=== PATIENT | male | born 1950 | race Caucasian/White ===

== ENCOUNTER 2017-02-16 20:49 | Inpatient (IN) ==
--- NOTE | 2017-02-16 21:18 | Emergency Department Note ---
Disposition Clinical Impression: Elevated lipase, Hyperkalemia Abdominal pain Qualifiers: Abdominal location: unspecified location Qualified Code(s): R10.9 - Unspecified abdominal pain Leukocytosis Qualifiers: Leukocytosis type: bandemia Qualified Code(s): D72.825 - Bandemia Disposition: Admitted As Inpatient Condition: Fair Time of Disposition: 23:24 Recheck wound or abnormal lab - General Chief Complaint: ED Recheck/Abnormal Lab/Rx Stated Complaint: "abnormal labs" Time Seen by Provider: 02/16/17 21:18 Source: EMS Mode of arrival: EMS Limitations: language barrier, altered mental status, physical limitation, age Nursing Notes Reviewed: Yes Vital Signs Reviewed: Yes - History of Present Illness HPI Narrative: Patient is a 66-year-old male with past medical history BPH, CKD, obsessive- compulsive disorder,. Schizophrenia, cholelithiasis. He presented today as a transfer from the [facility] due to abdominal pain, leukocytosis, hyperkalemia. On arrival, patient is a very poor historian, will no answer any questions for me. When asked if he has abdominal pain he grunts yes but otherwise will not answer anything else. Labs from the [facility] show a leukocytosis of 12. Segmented neutrophils 81.2 high. Potassium 5.8 with EKG with peaked T waves. Patient was given calcium, insulin and glucose, albuterol at the [facility] for this. Patient had x-ray of the chest and abdomen that showed nonobstructive bowel gas pattern. Creatinine 2.4, no previous values to compare this to. Patient also had a lipase of 365. - Related Data Home Medications Medication Instructions Recorded Confirmed ARIPiprazole [Abilify] 10 mg PO DAILY 01/14/16 02/16/17 BuPROPion SR (12 HR) [Wellbutrin 100 mg PO BID 01/14/16 02/16/17 SR] Haloperidol [Haldol] 5 mg PO TID 01/14/16 02/16/17 Lisinopril [Zestril] 5 mg PO DAILY 01/14/16 02/16/17 Pravastatin Sodium [Pravachol] 20 mg PO HS 01/14/16 02/16/17 Haloperidol Decanoate [Haldol] 25 mg IM Q2W 02/16/17 02/16/17 [place]-3 Fatty Acids [Fish Oil 3,000 mg PO DAILY 02/16/17 02/16/17 Concentrate] Allergies Allergy/AdvReac Type Severity Reaction Status Date / Time quetiapine AdvReac See Verified 01/14/16 11:27 Comments Limitations: ROS unobtainable due to patients medical condition Past Medical History - Past Medical History Attestation: Yes The following information was validated with the patient. Source: old records reviewed Medical history: Reports: hyperlipidemia, hypertension, migraine Psychiatric history: Reports: anxiety, schizophrenia - Social History Smoking Status: Unknown if ever smoked Smokeless Tobacco Status: No Alcohol use: Reports: unknown Drug use: Reports: unknown Physical Exam - General Limitations: language barrier, altered mental status, physical limitation, age General appearance: alert - Head Head exam: atraumatic, normocephalic, normal inspection - Eye Eye exam: Present: normal appearance, PERRL, EOMI - ENT ENT exam: normal exam, mucous membranes moist - Neck Neck exam: Present: normal inspection, full ROM, trachea midline - Chest Chest inspection: Present: normal inspection, symmetric chest wall rise - Respiratory Respiratory exam: Present: normal lung sounds bilaterally - Cardiovascular Cardiovascular exam: Present: regular rate, normal rhythm, normal heart sounds - Abdominal Exam Abdominal exam: Present: soft, tenderness (Questionable tenderness in the epigastric and right upper quadrant region. Patient is very stoic on exam with flat facies which impairs physical exam.). Absent: distention, guarding, rebound, rigidity - Extremities Exam Extremities exam: Present: normal inspection. Absent: pedal edema - Neurological Exam Neurological exam: Present: alert, other (Would not answer any questions or perform any requested commands.) - Psychiatric Psychiatric exam: Present: normal mood, flat affect - Skin Skin exam: Present: warm, dry, intact, normal color Course Course Narrative: Patient mildly tachycardic on exam. Physical exam shows Questionable tenderness in the epigastric and right upper quadrant region. Patient is very stoic on exam with flat facies which impairs physical exam. CT of the abdomen and pelvis was obtained that showed no acute findings but did show cholelithiasis. Due to leukocytosis, left shift, possible right upper quadrant pain, patient was started on Unasyn. Would recommend that the patient receives an MRCP or further study of gallbladder/biliary system once admitted. We will admit the patient for abdominal pain, leukocytosis, elevated lipase, hyperkalemia. Repeat EKG here shows no peaked T waves. Patient also given 1 L normal saline and dextrose for mildly low glucose. Abdomen/Pelvis CT 02/16/17 20:57 IMPRESSION: 1. No acute findings identified within the abdomen and pelvis. 2. Cholelithiasis. D/ / 02/16/2017 22:03:15 Kev Dye MD / [email or web address] Interpreting Provider: Kev Dye MD Vital Signs Temperature 98.2 F 02/16/17 20:52 Pulse Rate 111 02/16/17 20:52 Respiratory Rate 18 02/16/17 20:52 Blood Pressure 111/62 02/16/17 20:52 O2 Sat by Pulse Oximetry 97 02/16/17 20:52 Temperature 98.6 F 02/17/17 03:45 Pulse Rate 100 02/17/17 03:45 Respiratory Rate 17 02/17/17 03:45 Blood Pressure 137/74 02/17/17 03:45 O2 Sat by Pulse Oximetry 95 02/17/17 03:45 Oxygen Delivery Oxygen Delivery Nasal Cannula Recheck wound or abnormal lab - MDM Narrative Medical decision making narrative: Patient mildly tachycardic on exam. Physical exam shows Questionable tenderness in the epigastric and right upper quadrant region. Patient is very stoic on exam with flat facies which impairs physical exam. CT of the abdomen and pelvis was obtained that showed no acute findings but did show cholelithiasis. Due to leukocytosis, left shift, possible right upper quadrant pain, patient was started on Unasyn. Would recommend that the patient receives an MRCP or further study of gallbladder/biliary system once admitted. We will admit the patient for abdominal pain, leukocytosis, elevated lipase, hyperkalemia. Repeat EKG here shows no peaked T waves. Patient also given 1 L normal saline and dextrose for mildly low glucose. - Medical Records Medical records reviewed: Yes I reviewed the patient's medical records. - Lab Data Lab results reviewed: Yes I reviewed the patient's lab results. Result diagrams: 02/17/17 05:20 02/17/17 05:20 Lab Results 02/16/17 Range/Units 21:37 Sodium 133 L (136-145) mEq/L Potassium 5.4 H (3.5-4.5) mEq/L Chloride 101 (98-109) mEq/L Carbon Dioxide 23 (19-29) mEq/L BUN 46 H (8-26) mg/dL Creatinine 1.99 H (0.72-1.25) mg/dL Est GFR ( Amer) 41 L (> 60) Est GFR (Non-Af Amer) 34 L (> 60) BUN/Creatinine Ratio 23 (6-26) Glucose 67 L (70-99) mg/dL Calculated Osmolality 286 (280-300) Calcium 9.6 (8.6-10.8) mg/dL - Radiology Data Radiology results reviewed: Yes I reviewed the patient's radiology results. Abdomen/Pelvis CT 02/16/17 20:57 IMPRESSION: 1. No acute findings identified within the abdomen and pelvis. 2. Cholelithiasis. D/ / 02/16/2017 22:03:15 Kev Dye MD / [email or web address] Interpreting Provider: Kev Dye MD - EKG Data EKG attestation: Yes I reviewed and interpreted this EKG. EKG results narrative: 02/16/2017 at 21:51. Sinus tachycardia Rate 103. GA 85. QRS 88. QTC 377. No acute ST elevation or depression. S.B.A.R. - S.B.A.RLawrence Situation: Demographics, MOA Background: Presenting Complaint, Relevant PMH, Meds, & Allergies Assessment: Vital Signs, Course and respsone to treatment, Exam Concerns, Patient/Family Expectation, Pertinant Lab Results, Outstanding Labs Recommendation: Barrier(s) to disposition, Recommendation based on pending studies, treatments, or consults S.B.A.R. Report Given to: Dr. Santo RosenthalBLawrenceAPepper Repor Time: 23:25 Attestation Statement - Attestation Attestation: I examined this patient and my medical decision-making was reviewed with the VAULT PERSON/PA/Advanced Practice Nurse/Resident Physician. I agree with the documented findings, disposition and treatment plan as described except to the extent set forth below. Patient to the emergency department with a chief complaint of abdominal pain. Patient was transferred to [facility] where he was found to be hyperkalemic and acute renal failure. 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 On exam he is laying in bed in no distress. Has some minimal tenderness to palpation of the upper abdomen. He is not guarding. Plan. Patient elevated lipase. Potassium is 5.4. Do not appreciate any peaked T waves on his EKG. CT scan shows some gallstones. Will admit patient for GI and possible MRCP. Antibiotic ordered.
[2017-02-16 22:06] LABS: Calcium 9.6 mg/dL (8.6-10.8); Potassium 5.4 mEq/L (3.5-4.5)
[2017-02-16] MEDS ORDERED: *HR* Dextrose 50 % in Water (Syg) 50 ML SYRINGE IVP ONE (22:10)
[2017-02-16] MEDS ORDERED: Ampicillin/Sulbactam 3,000 MG in 0.9 % Sodium Chloride Mini Bag 100 ML IVPB ONE (22:11)
[2017-02-16] MEDS ORDERED: 0.9 % Sodium Chloride 1,000 ML IVC ONE (22:13)
[2017-02-17] MEDS ORDERED: Ondansetron 4 MG/2 ML VIAL IVP PRN (02:50)
[2017-02-17] MEDS ORDERED: Naloxone 0.4 MG/ML INJ IVP PRN (02:50)
[2017-02-17] MEDS: 0.9 % Sodium Chloride 1,000 ML IVC SCH ×2 (03:22→15:53)
[2017-02-17] MEDS ORDERED: *HR* Morphine 2 MG/ML SYRINGE IVP PRN (03:36)
--- NOTE | 2017-02-17 04:04 | Internal Med History&Physical ---
Date of Encounter: 02/17/17 Time of Encounter: 03:00 Assessment and Plan (1) Acute renal failure Current visit: Yes Status: Acute Likely related to poor oral intake, prerenal azotemia and dehydration. Serum creatinine improved from 2.4-1.9 at this time. Continue IV hydration, monitor urine output and serum creatinine closely. Avoid new nephrotoxic agents. Hold WENDY inhibitor for now. Qualifiers: Acute renal failure type: unspecified Qualified Code(s): N17.9 - Acute kidney failure, unspecified (2) Elevated lipase Current visit: Yes Status: Acute Reported abdominal pain along with mildly elevated serum lipase. CT abdomen/ pelvis shows no acute abnormality; patient did have gallstones on previous imaging. Abdominal x-ray done at the [facility] emergency room shows nonspecific bowel gas pattern. Continue IV hydration, pain control with when necessary IV morphine. Low-fat Diet as tolerated, repeat serum lipase. (3) Hyperkalemia Current visit: Yes Status: Acute Probably related to acute renal failure. Patient received calcium gluconate/ albuterol/insulin/D50 at the [facility] emergency room and serum potassium noted to improve from 5.8-5.4 currently. We will give 1 dose of oral Kayexalate, monitor serum potassium closely. Telemetry monitoring. EKG done at the [facility] emergency room shows normal sinus rhythm with peaked T waves in precordial leads, EKG at this time shows sinus rhythm with improved T wave morphology. (4) Schizophrenia Current visit: Yes Status: Chronic History of paranoid schizophrenia, continue home medications. Could be in catatonic face at this time, continue to monitor and consider psychiatric evaluation if no improvement. Qualifiers: Schizophrenia type: paranoid schizophrenia Qualified Code(s): F20.0 - Paranoid schizophrenia (5) Essential hypertension Current visit: Yes Status: Chronic (6) Hyperlipidemia Current visit: Yes Status: Chronic Qualifiers: Hyperlipidemia type: unspecified Qualified Code(s): E78.5 - Hyperlipidemia , unspecified (7) BPH (benign prostatic hyperplasia) Current visit: Yes Status: Chronic Qualifiers: Prostatic enlargement morphology: unspecified morphology Lower urinary tract symptom presence: presence of symptoms unspecified Qualified Code(s): N40.0 - Benign prostatic hyperplasia without lower urinary tract symptoms Internal Medicine - H&P: HPI Chief complaint: Poor oral intake Admitted From: Emergency Dept Plans for Post Hospital Care: Home History of present illness: Mr. Centeno is a 66 year old male with history of paranoid schizophrenia was brought in by family with complaints of poor oral intake, not communicating for the last 2-3 days. He was initially taken to the emergency room at [facility] where he was noted to have abnormal labs including elevated serum creatinine, serum potassium, serum lipase and mild leukocytosis and he was transferred to our emergency room for further workup. Patient is unable to provide any history at this time, which is obtained from review of emergency room records. No family at bedside. Patient is noted to be in mild distress, intermittently reports abdominal pain but is unable to characterize or give specific details regarding the pain. Patient has been having poor oral intake for the last 2-3 days, not speaking or communicating with family members per emergency room records. Reported epigastric and lower abdominal pain for . No vomiting or diarrhea. Past Med Surg Social Fam HX - Past Medical History Medical history: GERD, hyperlipidemia, hypertension, migraine Psychiatric history: anxiety, schizophrenia - Past Surgical History Surgical History: other (Cannot be obtained due to patient's mental status) - Social History Smoking Status: Unknown if ever smoked Smokeless Tobacco Status: No Alcohol use: unknown Drug use: unknown Current living situation: Home, With Family - Family History Mother Adopted: No Family Member Ethnicity: Non- Living Status: Still Living Hx Family Cardiac Disorders: Yes (HTN, AAA) Hx Family Respiratory Disorders: Yes (COPD) Hx Family Cancer: No Hx Family GI Disorders: Yes (SBO) Hx Family Endocrine Disorder: Yes (Thyroid) Hx Family Neuromuscular Disorders: No Hx Family Neurologic Disorders: Yes (TIA) Hx Family HEENT Disorders: Yes (Eyes) Hx Family Autoimmune Disorders: No Internal Medicine - H&P: Meds ARIPiprazole [Abilify] 10 mg PO DAILY 01/14/16 [History] BuPROPion SR (12 HR) [Wellbutrin SR] 100 mg PO BID 01/14/16 [History] Haloperidol [Haldol] 5 mg PO TID 01/14/16 [History] Lisinopril [Zestril] 5 mg PO DAILY 01/14/16 [History] Pravastatin Sodium [Pravachol] 20 mg PO HS 01/14/16 [History] Haloperidol Decanoate [Haldol] 25 mg IM Q2W 02/16/17 [History] [place]-3 Fatty Acids [Fish Oil Concentrate] 3,000 mg PO DAILY 02/16/17 [History] Allergies quetiapine Adverse Reaction (Verified 01/14/16 11:27) See Comments tacycardia pt states almost killed him All Systems PM: A 10-system review of systems was performed and is negative for pertinent findings except as documented above in the HPI. - Constitutional Constitutional: malaise - EENT Eyes: no change in vision, no discharge, no pain, no photophobia Ears: no ear discharge, no ear pain, no tinnitus Nose, mouth and throat: no dysphagia, no nasal discharge, no neck pain, no sore throat - Cardiovascular Cardiovascular ROS IM: no chest pain, no diaphoresis, no dyspnea, no lightheadedness, no palpitations, no syncope - Respiratory Respiratory: no cough, no dyspnea, no wheezing, no excessive phlegm production - Gastrointestinal Gastrointestinal: abdominal pain - Musculoskeletal Musculoskeletal ROS IM: no numbness, no tingling - Integumentary Integumentary IM: no rash, no unusual bruising - Neurological Neurological ROS: abnormal speech, behavioral changes - Hematologic/Lymphatic Hematologic/Lymphatic: no easy bruising - Constitutional Vitals: Temp Pulse Resp BP Pulse Ox 97.5 F L 100 16 123/78 94 02/17/17 01:29 02/17/17 01:29 02/17/17 01:29 02/17/17 01:29 02/17/17 01:29 General appearance: Present: A&O X 0. Absent: answers questions appropriately - Respiratory Respiratory exam: Present: CTAB. Absent: accessory muscle use, rales, rhonchi, wheezes - Cardiovascular Cardiovascular exam: Present: RRR, +S1, +S2. Absent: diastolic murmur, gallop, rubs, systolic murmur - GI/Abdominal GI/Abdominal exam: Present: normal bowel sounds, rigid (Diffuse voluntary guarding), soft, no peritoneal signs. Absent: distended, tenderness - Extremities Exam Extremities exam: Present: full ROM, warm, radial pulses palpable and symetrical. Absent: calf tenderness, cyanotic, pedal edema - Neurological Exam Neurological exam: Present: altered (keeps eyes closed, cannot follow commands) , strengths equal and symetr throughout. Absent: pronater drift, facial droop, speech deficit - Skin Skin exam: Present: dry, intact Internal Med - H&P Results - Labs CBC & Chem 7: 02/16/17 21:37
[2017-02-17 06:00] LABS: Basophils % 0.2 %; Eosinophils % 0.4 %; Hematocrit 41.2 % (37.5-50.1); Hemoglobin 13.4 g/dL (12.9-16.9); Immature Granulocytes % 0.4 % (0-4); Lymphocytes % 18.6 %; Mean Corpuscular HGB Conc 32.5 g/dL (31.6-35.5); Mean Corpuscular Hemoglobin 29.1 pg (28.0-33.3); Mean Corpuscular Volume 89.4 fL (83.0-100.0); Mean Platelet Volume 9.1 fL (9.4-12.4); Monocytes # 0.9 K/mcL (0.0-1.3); Monocytes % 8.4 %; Neutrophils # 7.8 K/mcL (1.6-8.9); Platelet Count 220 K/mcL (140-400); Red Blood Count 4.61 M/mcL (4.19-5.50); Red Cell Distribution Width 12.7 % (11.5-14.5)
[2017-02-17 06:20] LABS: Calcium 8.8 mg/dL (8.6-10.8); Magnesium 1.6 mg/dL (1.6-2.6); Phosphorous 3.7 mg/dL (2.3-4.7); Potassium 5.4 mEq/L (3.5-4.5)
[2017-02-17] MEDS ORDERED: FISH OIL PO SCH (09:00)
[2017-02-17] MEDS: BuPROPion SR (12 HR) 100 MG TABLET PO SCH ×2 (09:13→21:30)
[2017-02-17] MEDS: ARIPiprazole 10 MG TABLET PO SCH (09:13)
[2017-02-17] MEDS: *HR* Heparin 5,000 UNIT/ML VIAL SQ SCH ×3 (09:14→21:30)
[2017-02-17 10:40] LABS: Potassium,Urine 58.9 mEq/L
[2017-02-17 10:43] LABS: Creatinine,Urine 177 mg/dL; Microalbum/Creatinine Ratio,Ur 130 (0-30); Microalbumin,Urine 230 mg/L
[2017-02-17 11:09] LABS: Calcium 8.5 mg/dL (8.6-10.8); Potassium 5.3 mEq/L (3.5-4.5)
[2017-02-17 15:24] LABS: BUN/Creatinine Ratio 26 (6-26); Blood Urea Nitrogen 33 mg/dL (8-26); Calcium 8.2 mg/dL (8.6-10.8); Carbon Dioxide 27 mEq/L (19-29); Chloride 103 mEq/L (98-109); Glucose 122 mg/dL (70-99); Osmolality,Calculated 289 (280-300); Potassium 5.2 mEq/L (3.5-4.5); Sodium 135 mEq/L (136-145); eGFR For African Americans > 60 (> 60); eGFR For Non-African Americans 57 (> 60)
--- NOTE | 2017-02-17 17:20 | Internal Med Progress Note ---
Date of Encounter: 02/17/17 Time of Encounter: 11:55 - Assessment and plan (1) Hyperkalemia Current Visit: Yes Status: Acute Assessment and plan: Is slowly trending down, we will repeat Kayexalate and keep monitoring electrolytes tomorrow in a.m. Avoid medications that could potentially increase potassium levels. Lisinopril was stopped. Patient had urinary retention earlier in the morning, a Ames catheter was placed. Continue monitoring input and output. Avoid nephrotoxic agents. Continue with telemetry monitoring. (2) Urinary retention Current Visit: Yes Status: Acute Assessment and plan: Continue with Ames, which was ordered this a.m. Additionally, Flomax was ordered. Apparently the patient was on Flomax as outpatient but he stopped according to his . No evidence of hydronephrosis in CT of the abdomen. No evidence of kidney stones either, patient's states that the patient was passing kidney stones in the urine. Will benefit from an evaluation with urology as outpatient. (3) Acute renal failure Current Visit: Yes Status: Acute Assessment and plan: Kidney function tests improving with IV fluids. Avoid nephrotoxic agents. Continue monitoring kidney function test and electrolytes. Qualifiers: Acute renal failure type: unspecified Qualified Code(s): N17.9 - Acute kidney failure, unspecified (4) Schizophrenia Current Visit: Yes Status: Chronic Assessment and plan: Resume home medications. Qualifiers: Schizophrenia type: paranoid schizophrenia Qualified Code(s): F20.0 - Paranoid schizophrenia (5) Essential hypertension Current Visit: Yes Status: Chronic (6) BPH (benign prostatic hyperplasia) Current Visit: Yes Status: Chronic Qualifiers: Prostatic enlargement morphology: unspecified morphology Lower urinary tract symptom presence: presence of symptoms unspecified Qualified Code(s): N40.0 - Benign prostatic hyperplasia without lower urinary tract symptoms - Subjective Interval history: Patient seen and examined during rounds. Initially was drowsy, the there was reexamining, examined members were at bedside the patient looks more alert, following commands partially. Patient has a Ames catheter placed, he was found to have urinary retention of 700 mL - Constitutional Vitals: Temp Pulse Resp BP Pulse Ox 97.9 F 83 18 118/75 97 02/17/17 15:25 02/17/17 15:25 02/17/17 10:58 02/17/17 15:25 02/17/17 15:25 General appearance: Present: A&O X 2. Absent: answers questions appropriately - Head Head exam: Present: atraumatic, normocephalic - Eye Eye exam: Present: PERRL, conjuntiva pink, sclera anicteric Pupils: Present: PERRL - Neck Neck exam general surgery: Present: supple, trachea midline. Absent: lymphadenopathy - Respiratory Respiratory exam: Present: CTAB. Absent: accessory muscle use, rales, rhonchi, wheezes - Cardiovascular Cardiovascular exam: Present: RRR, +S1, +S2. Absent: diastolic murmur, gallop, rubs, systolic murmur - GI/Abdominal GI/Abdominal exam: Present: normal bowel sounds, soft, no peritoneal signs. Absent: distended, tenderness - Extremities Exam Extremities exam: Present: warm, radial pulses palpable and symetrical. Absent : calf tenderness, cyanotic, pedal edema - Neurological Exam Neurological exam: Present: CN II-XII intact, oriented X3, no focal deficits. Absent: pronater drift, facial droop, speech deficit - Skin Skin exam: Present: dry, intact Internal Medicine: Result - Labs CBC & Chem 7: 02/17/17 05:20 02/17/17 15:03 Labs: Short CBC 02/17/17 Range/Units 05:20 WBC 10.8 (4.3-11.1) K/mcL Hgb 13.4 (12.9-16.9) g/dL Hct 41.2 (37.5-50.1) % Plt Count 220 (140-400) K/mcL Neutrophils # 7.8 (1.6-8.9) K/mcL BMP 02/17/17 02/17/17 02/17/17 05:20 09:05 15:03 Sodium 134 L 133 L 135 L Potassium 5.4 H 5.3 H 5.2 H Chloride 102 102 103 Carbon Dioxide 24 21 27 BUN 39 H 37 H 33 H Creatinine 1.58 H 1.47 H 1.26 H Glucose 83 131 H 122 H Calcium 8.8 8.5 L 8.2 L Consult Discharge Plan - Plan [facility]errals: [facility]Primary Care Provider[facility] - 02/25/17 12:45 pm
[2017-02-18] MEDS: 0.9 % Sodium Chloride 1,000 ML IVC SCH (03:36)
[2017-02-18] MEDS: *HR* Heparin 5,000 UNIT/ML VIAL SQ SCH ×3 (05:02→21:57)
[2017-02-18] MEDS ORDERED: *HR* Morphine 2 MG/ML SYRINGE IVP PRN (05:36)
[2017-02-18 05:54] LABS: BUN/Creatinine Ratio 25 (6-26); Blood Urea Nitrogen 26 mg/dL (8-26); Calcium 8.1 mg/dL (8.6-10.8); Carbon Dioxide 27 mEq/L (19-29); Chloride 104 mEq/L (98-109); Creatine Kinase 205 Units/L (30-200); Glucose 100 mg/dL (70-99); Osmolality,Calculated 293 (280-300); Potassium 4.4 mEq/L (3.5-4.5); Sodium 139 mEq/L (136-145); eGFR For African Americans > 60 (> 60); eGFR For Non-African Americans > 60 (> 60)
[2017-02-18 06:52] LABS: Basophils % 0.1 %; Eosinophils # 0.1 K/mcL (0.0-0.6); Eosinophils % 1.2 %; Hematocrit 37.4 % (37.5-50.1); Immature Granulocytes % 0.3 % (0-4); Lymphocytes # 1.6 K/mcL (0.6-4.6); Lymphocytes % 20.7 %; Mean Corpuscular HGB Conc 32.1 g/dL (31.6-35.5); Mean Corpuscular Hemoglobin 29.2 pg (28.0-33.3); Mean Platelet Volume 9.4 fL (9.4-12.4); Monocytes # 0.6 K/mcL (0.0-1.3); Monocytes % 7.7 %; Neutrophils # 5.4 K/mcL (1.6-8.9); Platelet Count 196 K/mcL (140-400); Red Blood Count 4.11 M/mcL (4.19-5.50); Red Cell Distribution Width 12.7 % (11.5-14.5)
[2017-02-18 06:55] LABS: Hepatitis A Antibody IgM Nonreactive (Nonreactive); Hepatitis B Core IgM Nonreactive (Nonreactive); Hepatitis B Surface Antigen Nonreactive (Nonreactive); Hepatitis C Virus Antibody Nonreactive (Nonreactive)
[2017-02-18 07:17] LABS: C-Reactive Protein 8 mg/L (Less than 5)
[2017-02-18] MEDS: ARIPiprazole 10 MG TABLET PO SCH (08:10)
[2017-02-18] MEDS: BuPROPion SR (12 HR) 100 MG TABLET PO SCH ×2 (08:10→21:54)
--- NOTE | 2017-02-18 17:18 | Internal Med Progress Note ---
Date of Encounter: 02/18/17 Time of Encounter: 13:00 - Assessment and plan (1) Hyperkalemia Current Visit: Yes Status: Acute Assessment and plan: Iresolved, will continue monitoring. Avoid medications that could potentially increase potassium levels. Lisinopril was stopped. Patient had urinary retention yesterday morning, a Ames catheter was placed. Continue monitoring input and output. Avoid nephrotoxic agents. Continue with telemetry monitoring. (2) Urinary retention Current Visit: Yes Status: Acute Assessment and plan: Continue with Ames Additionally, Flomax was ordered. Apparently the patient was on Flomax as outpatient but he stopped according to his . No evidence of hydronephrosis in CT of the abdomen. No evidence of kidney stones either, patient's states that the patient was passing kidney stones in the urine. Will benefit from an evaluation with urology as outpatient. (3) Acute renal failure Current Visit: Yes Status: Acute Assessment and plan: Kidney function tests improving nicely with IV fluids. Avoid nephrotoxic agents. Continue monitoring kidney function test and electrolytes. Qualifiers: Acute renal failure type: unspecified Qualified Code(s): N17.9 - Acute kidney failure, unspecified (4) Schizophrenia Current Visit: Yes Status: Chronic Assessment and plan: continue with home medications. Qualifiers: Schizophrenia type: paranoid schizophrenia Qualified Code(s): F20.0 - Paranoid schizophrenia (5) Essential hypertension Current Visit: Yes Status: Chronic (6) BPH (benign prostatic hyperplasia) Current Visit: Yes Status: Chronic Qualifiers: Prostatic enlargement morphology: unspecified morphology Lower urinary tract symptom presence: presence of symptoms unspecified Qualified Code(s): N40.0 - Benign prostatic hyperplasia without lower urinary tract symptoms - Subjective Interval history: Patient seen and examined during rounds. received morphine overight, was drowsy. Patient has a Ames catheter placed. wie at bedside. not having pain during this encounter. - Constitutional Vitals: Temp Pulse Resp BP Pulse Ox 98.9 F 96 18 173/81 93 02/18/17 15:28 02/18/17 15:28 02/18/17 15:28 02/18/17 15:28 02/18/17 15:28 General appearance: Present: A&O X 2. Absent: answers questions appropriately - Head Head exam: Present: atraumatic, normocephalic - Eye Eye exam: Present: PERRL, conjuntiva pink, sclera anicteric Pupils: Present: PERRL - Neck Neck exam general surgery: Present: supple, trachea midline. Absent: lymphadenopathy - Respiratory Respiratory exam: Present: CTAB. Absent: accessory muscle use, rales, rhonchi, wheezes - Cardiovascular Cardiovascular exam: Present: RRR, +S1, +S2. Absent: diastolic murmur, gallop, rubs, systolic murmur - GI/Abdominal GI/Abdominal exam: Present: normal bowel sounds, soft, no peritoneal signs. Absent: distended, tenderness - Extremities Exam Extremities exam: Present: warm, radial pulses palpable and symetrical. Absent : calf tenderness, cyanotic, pedal edema - Neurological Exam Neurological exam: Present: CN II-XII intact, oriented X3, no focal deficits. Absent: pronater drift, facial droop, speech deficit - Skin Skin exam: Present: dry, intact Internal Medicine: Result - Labs CBC & Chem 7: 02/18/17 04:48 02/18/17 04:48 Labs: Short CBC 02/18/17 Range/Units 04:48 WBC 7.7 (4.3-11.1) K/mcL Hgb 12.0 L (12.9-16.9) g/dL Hct 37.4 L (37.5-50.1) % Plt Count 196 (140-400) K/mcL Neutrophils # 5.4 (1.6-8.9) K/mcL BMP 02/18/17 04:48 Sodium 139 Potassium 4.4 Chloride 104 Carbon Dioxide 27 BUN 26 Creatinine 1.03 Glucose 100 H Calcium 8.1 L Consult Discharge Plan - Plan [facility]errals: [facility] [Primary Care Provider] - 02/25/17 12:45 pm
[2017-02-19 03:22] LABS: Basophils % 0.4 %; Eosinophils # 0.1 K/mcL (0.0-0.6); Eosinophils % 0.8 %; Hematocrit 35.7 % (37.5-50.1); Hemoglobin 11.9 g/dL (12.9-16.9); Immature Granulocytes % 0.1 % (0-4); Lymphocytes # 1.2 K/mcL (0.6-4.6); Lymphocytes % 16.5 %; Mean Corpuscular HGB Conc 33.3 g/dL (31.6-35.5); Mean Corpuscular Hemoglobin 30.1 pg (28.0-33.3); Mean Corpuscular Volume 90.2 fL (83.0-100.0); Mean Platelet Volume 9.3 fL (9.4-12.4); Monocytes # 0.5 K/mcL (0.0-1.3); Monocytes % 7.1 %; Neutrophils # 5.5 K/mcL (1.6-8.9); Platelet Count 168 K/mcL (140-400); Red Blood Count 3.96 M/mcL (4.19-5.50); Red Cell Distribution Width 12.3 % (11.5-14.5); Segmented Neutrophils % 75.1 %
[2017-02-19 03:39] LABS: BUN/Creatinine Ratio 22 (6-26); Blood Urea Nitrogen 20 mg/dL (8-26); Calcium 8.2 mg/dL (8.6-10.8); Carbon Dioxide 25 mEq/L (19-29); Chloride 104 mEq/L (98-109); Glucose 95 mg/dL (70-99); Osmolality,Calculated 286 (280-300); Potassium 4.3 mEq/L (3.5-4.5); Sodium 137 mEq/L (136-145); eGFR For African Americans > 60 (> 60); eGFR For Non-African Americans > 60 (> 60)
[2017-02-19] MEDS: *HR* Heparin 5,000 UNIT/ML VIAL SQ SCH ×3 (05:22→22:42)
[2017-02-19] MEDS: 0.9 % Sodium Chloride 1,000 ML IVC SCH ×3 (05:30→18:54)
[2017-02-19] MEDS: ARIPiprazole 10 MG TABLET PO SCH (07:56)
[2017-02-19] MEDS: BuPROPion SR (12 HR) 100 MG TABLET PO SCH ×2 (07:56→22:41)
--- NOTE | 2017-02-19 15:58 | Internal Med Progress Note ---
Date of Encounter: 02/19/17 Time of Encounter: 13:50 - Assessment and plan (1) Hyperkalemia Current Visit: Yes Status: Acute Assessment and plan: resolved, will continue monitoring. Avoid medications that could potentially increase potassium levels. Lisinopril was stopped. Patient had urinary retention upon first evaluation in the unit, a Ames catheter was placed. Continue monitoring input and output. Avoid nephrotoxic agents. Continue with telemetry monitoring. (2) Urinary retention Current Visit: Yes Status: Acute Assessment and plan: Continue with Ames Additionally, Flomax was ordered. Apparently the patient was on Flomax as outpatient but he stopped according to his . No evidence of hydronephrosis in CT of the abdomen. No evidence of kidney stones either, patient's states that the patient was passing kidney stones in the urine. Will benefit from an evaluation with urology as outpatient. (3) Acute renal failure Current Visit: Yes Status: Acute Assessment and plan: Kidney function tests improving nicely with IV fluids. Currently back to normal. Avoid nephrotoxic agents. Continue monitoring kidney function test and electrolytes. Qualifiers: Acute renal failure type: unspecified Qualified Code(s): N17.9 - Acute kidney failure, unspecified (4) Schizophrenia Current Visit: Yes Status: Chronic Assessment and plan: continue with home medications. patient with long history of mental health disorders, he was even admitted at the inpatient psych unit at the [place]. D/W patient's in detail, he is medically getting better and bandar try to optimize his oral intake. Will initiate process of transfer to the [place] inpatient psych unit. Qualifiers: Schizophrenia type: paranoid schizophrenia Qualified Code(s): F20.0 - Paranoid schizophrenia (5) Essential hypertension Current Visit: Yes Status: Chronic (6) BPH (benign prostatic hyperplasia) Current Visit: Yes Status: Chronic Qualifiers: Prostatic enlargement morphology: unspecified morphology Lower urinary tract symptom presence: presence of symptoms unspecified Qualified Code(s): N40.0 - Benign prostatic hyperplasia without lower urinary tract symptoms - Subjective Interval history: Patient seen and examined during rounds. Patient has a Ames catheter placed. at bedside. not having pain during this encounter. - Constitutional Vitals: Temp Pulse Resp BP Pulse Ox 98.9 F 78 18 168/73 95 02/19/17 15:35 02/19/17 15:35 02/19/17 15:35 02/19/17 15:35 02/19/17 15:35 General appearance: Present: A&O X 2. Absent: answers questions appropriately - Head Head exam: Present: atraumatic, normocephalic - Eye Eye exam: Present: PERRL, conjuntiva pink, sclera anicteric Pupils: Present: PERRL - Neck Neck exam general surgery: Present: supple, trachea midline. Absent: lymphadenopathy - Respiratory Respiratory exam: Present: CTAB. Absent: accessory muscle use, rales, rhonchi, wheezes - Cardiovascular Cardiovascular exam: Present: RRR, +S1, +S2. Absent: diastolic murmur, gallop, rubs, systolic murmur - GI/Abdominal GI/Abdominal exam: Present: normal bowel sounds, soft, no peritoneal signs. Absent: distended, tenderness - Extremities Exam Extremities exam: Present: warm, radial pulses palpable and symetrical. Absent : calf tenderness, cyanotic, pedal edema - Neurological Exam Neurological exam: Present: CN II-XII intact, oriented X3, no focal deficits. Absent: pronater drift, facial droop, speech deficit - Skin Skin exam: Present: dry, intact Internal Medicine: Result - Labs CBC & Chem 7: 02/19/17 03:12 02/19/17 03:12 Labs: Short CBC 02/19/17 Range/Units 03:12 WBC 7.3 (4.3-11.1) K/mcL Hgb 11.9 L (12.9-16.9) g/dL Hct 35.7 L (37.5-50.1) % Plt Count 168 (140-400) K/mcL Neutrophils # 5.5 (1.6-8.9) K/mcL BMP 02/19/17 03:12 Sodium 137 Potassium 4.3 Chloride 104 Carbon Dioxide 25 BUN 20 Creatinine 0.89 Glucose 95 Calcium 8.2 L Consult Discharge Plan - Plan [facility]: [facility] Care Provider[facility] - 02/25/17 12:45 pm
[2017-02-19] MEDS: Acetaminophen 325 MG TABLET PO PRN (22:41)
[2017-02-20 04:14] LABS: Basophils % 0.5 %; Eosinophils # 0.1 K/mcL (0.0-0.6); Eosinophils % 1.1 %; Hematocrit 35.4 % (37.5-50.1); Hemoglobin 11.6 g/dL (12.9-16.9); Immature Granulocytes % 0.3 % (0-4); Lymphocytes # 1.3 K/mcL (0.6-4.6); Mean Corpuscular HGB Conc 32.8 g/dL (31.6-35.5); Mean Corpuscular Hemoglobin 29.4 pg (28.0-33.3); Mean Corpuscular Volume 89.6 fL (83.0-100.0); Mean Platelet Volume 9.7 fL (9.4-12.4); Monocytes # 0.6 K/mcL (0.0-1.3); Monocytes % 9.2 %; Neutrophils # 4.4 K/mcL (1.6-8.9); Platelet Count 182 K/mcL (140-400); Red Blood Count 3.95 M/mcL (4.19-5.50); Red Cell Distribution Width 12.2 % (11.5-14.5); Segmented Neutrophils % 68.9 %
[2017-02-20 04:28] LABS: BUN/Creatinine Ratio 22 (6-26); Blood Urea Nitrogen 19 mg/dL (8-26); Carbon Dioxide 22 mEq/L (19-29); Chloride 105 mEq/L (98-109); Glucose 82 mg/dL (70-99); Potassium 4.4 mEq/L (3.5-4.5); Sodium 137 mEq/L (136-145); eGFR For African Americans > 60 (> 60); eGFR For Non-African Americans > 60 (> 60)
[2017-02-20 04:29] LABS: Calcium 8.3 mg/dL (8.6-10.8); Osmolality,Calculated 285 (280-300)
[2017-02-20] MEDS: *HR* Heparin 5,000 UNIT/ML VIAL SQ SCH ×3 (05:54→21:25)
[2017-02-20 07:40] LABS: ANA IgG by ELISA NONE DETECTED (None Detected)
[2017-02-20] MEDS: ARIPiprazole 10 MG TABLET PO SCH (07:52)
[2017-02-20] MEDS: BuPROPion SR (12 HR) 100 MG TABLET PO SCH ×2 (07:52→21:24)
[2017-02-20] MEDS: 0.9 % Sodium Chloride 1,000 ML IVC SCH ×2 (08:02→17:15)
--- NOTE | 2017-02-20 16:59 | Internal Med Progress Note ---
Date of Encounter: 02/20/17 Time of Encounter: 11:35 - Assessment and plan (1) Hyperkalemia Current Visit: Yes Status: Acute Assessment and plan: resolved, will continue monitoring. Avoid medications that could potentially increase potassium levels. Lisinopril was stopped. Patient had urinary retention upon first evaluation in the unit, a Ames catheter was placed. Continue monitoring input and output. Avoid nephrotoxic agents. Continue with telemetry monitoring. (2) Urinary retention Current Visit: Yes Status: Acute (3) Acute renal failure Current Visit: Yes Status: Acute Assessment and plan: Kidney function tests improving nicely with IV fluids. Currently back to normal. Avoid nephrotoxic agents. Continue monitoring kidney function test and electrolytes. Qualifiers: Acute renal failure type: unspecified Qualified Code(s): N17.9 - Acute kidney failure, unspecified (4) Schizophrenia Current Visit: Yes Status: Chronic Assessment and plan: continue with home medications. patient with long history of mental health disorders, he was even admitted at the inpatient psych unit at the [place]. D/W patient's in detail, he is medically getting better and bandar try to optimize his oral intake. Will initiate process of transfer to the [place] inpatient psych unit. Qualifiers: Schizophrenia type: paranoid schizophrenia Qualified Code(s): F20.0 - Paranoid schizophrenia (5) Essential hypertension Current Visit: Yes Status: Chronic (6) BPH (benign prostatic hyperplasia) Current Visit: Yes Status: Chronic Qualifiers: Prostatic enlargement morphology: unspecified morphology Lower urinary tract symptom presence: presence of symptoms unspecified Qualified Code(s): N40.0 - Benign prostatic hyperplasia without lower urinary tract symptoms - Subjective Interval history: Patient seen and examined during rounds. Patient has a Ames catheter placed. not following commands. not having pain during this encounter. - Constitutional Vitals: Temp Pulse Resp BP Pulse Ox 98.5 F 90 18 162/94 94 02/20/17 11:46 02/20/17 11:46 02/20/17 11:46 02/20/17 11:46 02/20/17 11:46 General appearance: Present: A&O X 2. Absent: answers questions appropriately - Head Head exam: Present: atraumatic, normocephalic - Eye Eye exam: Present: PERRL, conjuntiva pink, sclera anicteric Pupils: Present: PERRL - Neck Neck exam general surgery: Present: supple, trachea midline. Absent: lymphadenopathy - Respiratory Respiratory exam: Present: CTAB. Absent: accessory muscle use, rales, rhonchi, wheezes - Cardiovascular Cardiovascular exam: Present: RRR, +S1, +S2. Absent: diastolic murmur, gallop, rubs, systolic murmur - GI/Abdominal GI/Abdominal exam: Present: normal bowel sounds, soft, no peritoneal signs. Absent: distended, tenderness - Extremities Exam Extremities exam: Present: warm, radial pulses palpable and symetrical. Absent : calf tenderness, cyanotic, pedal edema - Neurological Exam Neurological exam: Present: no focal deficits. Absent: pronater drift, facial droop, speech deficit - Skin Skin exam: Present: dry, intact Internal Medicine: Result - Labs CBC & Chem 7: 02/20/17 03:31 02/20/17 03:31 Labs: Short CBC 02/20/17 Range/Units 03:31 WBC 6.3 (4.3-11.1) K/mcL Hgb 11.6 L (12.9-16.9) g/dL Hct 35.4 L (37.5-50.1) % Plt Count 182 (140-400) K/mcL Neutrophils # 4.4 (1.6-8.9) K/mcL BMP 02/20/17 03:31 Sodium 137 Potassium 4.4 Chloride 105 Carbon Dioxide 22 BUN 19 Creatinine 0.86 Glucose 82 Calcium 8.3 L Consult Discharge Plan - Plan [facility]: [facility] [Primary Care Provider[facility] - 02/25/17 12:45 pm
[2017-02-20] MEDS ORDERED: *HR* LORazepam 2 MG/ML VIAL IVP ONE (23:46)
[2017-02-21] MEDS: *HR* Labetalol 20 MG/4 ML SYRINGE IVP PRN ×2 (00:28→22:38)
[2017-02-21 05:12] LABS: Basophils % 0.3 %; Eosinophils # 0.2 K/mcL (0.0-0.6); Eosinophils % 2.6 %; Hematocrit 33.7 % (37.5-50.1); Hemoglobin 11.2 g/dL (12.9-16.9); Immature Granulocytes % 0.2 % (0-4); Lymphocytes # 1.5 K/mcL (0.6-4.6); Lymphocytes % 24.8 %; Mean Corpuscular HGB Conc 33.2 g/dL (31.6-35.5); Mean Corpuscular Hemoglobin 29.9 pg (28.0-33.3); Mean Corpuscular Volume 89.9 fL (83.0-100.0); Mean Platelet Volume 9.5 fL (9.4-12.4); Monocytes # 0.6 K/mcL (0.0-1.3); Monocytes % 9.9 %; Neutrophils # 3.6 K/mcL (1.6-8.9); Platelet Count 155 K/mcL (140-400); Red Blood Count 3.75 M/mcL (4.19-5.50); Red Cell Distribution Width 12.4 % (11.5-14.5); Segmented Neutrophils % 62.2 %
[2017-02-21 05:23] LABS: BUN/Creatinine Ratio 21 (6-26); Blood Urea Nitrogen 18 mg/dL (8-26); Calcium 8.3 mg/dL (8.6-10.8); Carbon Dioxide 26 mEq/L (19-29); Chloride 103 mEq/L (98-109); Glucose 81 mg/dL (70-99); Magnesium 1.6 mg/dL (1.6-2.6); Osmolality,Calculated 283 (280-300); Potassium 4.2 mEq/L (3.5-4.5); Sodium 136 mEq/L (136-145); eGFR For African Americans > 60 (> 60); eGFR For Non-African Americans > 60 (> 60)
[2017-02-21] MEDS: *HR* Heparin 5,000 UNIT/ML VIAL SQ SCH ×3 (06:47→22:10)
[2017-02-21] MEDS: BuPROPion SR (12 HR) 100 MG TABLET PO SCH ×2 (08:32→22:10)
[2017-02-21] MEDS: ARIPiprazole 10 MG TABLET PO SCH (08:32)
[2017-02-21] MEDS: Magnesium Oxide 400 MG TABLET PO SCH (08:49)
--- NOTE | 2017-02-21 12:06 | Internal Med Progress Note ---
Date of Encounter: 02/21/17 Time of Encounter: 12:04 - Assessment and plan (1) Hyperkalemia Current Visit: Yes Status: Acute Assessment and plan: resolved, will continue monitoring. Avoid medications that could potentially increase potassium levels. Lisinopril was stopped. Patient had urinary retention upon first evaluation in the unit, a Ames catheter was placed. Continue monitoring input and output. Avoid nephrotoxic agents. Continue with telemetry monitoring. (2) Urinary retention Current Visit: Yes Status: Acute Assessment and plan: Continue with Ames Additionally, Flomax was ordered. Apparently the patient was on Flomax as outpatient but he stopped according to his . No evidence of hydronephrosis in CT of the abdomen. No evidence of kidney stones either, patient's states that the patient was passing kidney stones in the urine. Will benefit from an evaluation with urology as outpatient. (3) Acute renal failure Current Visit: Yes Status: Acute Assessment and plan: Kidney function tests improving nicely with IV fluids. Currently back to normal. Avoid nephrotoxic agents. Continue monitoring kidney function test and electrolytes. Qualifiers: Acute renal failure type: unspecified Qualified Code(s): N17.9 - Acute kidney failure, unspecified (4) Schizophrenia Current Visit: Yes Status: Chronic Assessment and plan: continue with home medications. patient with long history of mental health disorders, he was even admitted at the inpatient psych unit at the [place]. he is medically getting better and bandar try to optimize his oral intake. Will initiate process of transfer to the [place] inpatient psych unit. Qualifiers: Schizophrenia type: paranoid schizophrenia Qualified Code(s): F20.0 - Paranoid schizophrenia (5) Essential hypertension Current Visit: Yes Status: Chronic (6) BPH (benign prostatic hyperplasia) Current Visit: Yes Status: Chronic Qualifiers: Prostatic enlargement morphology: unspecified morphology Lower urinary tract symptom presence: presence of symptoms unspecified Qualified Code(s): N40.0 - Benign prostatic hyperplasia without lower urinary tract symptoms - Subjective Interval history: Patient seen and examined during rounds. Patient has a Ames catheter placed. not following commands, more alert than yesterday. not having pain during this encounter. - Constitutional Vitals: Temp Pulse Resp BP Pulse Ox 98.3 F 73 22 142/76 94 02/21/17 09:25 02/21/17 09:25 02/21/17 09:25 02/21/17 09:25 02/21/17 09:25 General appearance: Present: A&O X 2. Absent: answers questions appropriately - Head Head exam: Present: atraumatic, normocephalic - Eye Eye exam: Present: PERRL, conjuntiva pink, sclera anicteric Pupils: Present: PERRL - Neck Neck exam general surgery: Present: supple, trachea midline. Absent: lymphadenopathy - Respiratory Respiratory exam: Present: CTAB. Absent: accessory muscle use, rales, rhonchi, wheezes - Cardiovascular Cardiovascular exam: Present: RRR, +S1, +S2. Absent: diastolic murmur, gallop, rubs, systolic murmur - GI/Abdominal GI/Abdominal exam: Present: normal bowel sounds, soft, no peritoneal signs. Absent: distended, tenderness - Extremities Exam Extremities exam: Present: warm, radial pulses palpable and symetrical. Absent : calf tenderness, cyanotic, pedal edema - Neurological Exam Neurological exam: Present: no focal deficits. Absent: pronater drift, facial droop, speech deficit - Skin Skin exam: Present: dry, intact Internal Medicine: Result - Labs CBC & Chem 7: 02/21/17 04:54 02/21/17 04:54 Labs: Short CBC 02/21/17 Range/Units 04:54 WBC 5.9 (4.3-11.1) K/mcL Hgb 11.2 L (12.9-16.9) g/dL Hct 33.7 L (37.5-50.1) % Plt Count 155 (140-400) K/mcL Neutrophils # 3.6 (1.6-8.9) K/mcL BMP 02/21/17 04:54 Sodium 136 Potassium 4.2 Chloride 103 Carbon Dioxide 26 BUN 18 Creatinine 0.86 Glucose 81 Calcium 8.3 L Consult Discharge Plan - Plan [facility]: [facility] [Primary Care Provider[facility] - 02/25/17 12:45 pm
[2017-02-21] MEDS: 0.9 % Sodium Chloride 1,000 ML IVC SCH (17:44)
[2017-02-22 06:00] LABS: Basophils % 0.3 %; Eosinophils # 0.2 K/mcL (0.0-0.6); Eosinophils % 2.4 %; Hematocrit 37.2 % (37.5-50.1); Hemoglobin 12.5 g/dL (12.9-16.9); Immature Granulocytes % 0.5 % (0-4); Lymphocytes # 1.7 K/mcL (0.6-4.6); Lymphocytes % 26.2 %; Mean Corpuscular HGB Conc 33.6 g/dL (31.6-35.5); Mean Corpuscular Hemoglobin 29.9 pg (28.0-33.3); Mean Platelet Volume 9.8 fL (9.4-12.4); Monocytes # 0.6 K/mcL (0.0-1.3); Neutrophils # 4.1 K/mcL (1.6-8.9); Platelet Count 170 K/mcL (140-400); Red Blood Count 4.18 M/mcL (4.19-5.50); Red Cell Distribution Width 12.3 % (11.5-14.5); Segmented Neutrophils % 61.6 %
[2017-02-22 06:29] LABS: BUN/Creatinine Ratio 23 (6-26); Blood Urea Nitrogen 20 mg/dL (8-26); Calcium 8.9 mg/dL (8.6-10.8); Carbon Dioxide 24 mEq/L (19-29); Chloride 103 mEq/L (98-109); Glucose 76 mg/dL (70-99); Osmolality,Calculated 283 (280-300); Potassium 4.5 mEq/L (3.5-4.5); Sodium 136 mEq/L (136-145); eGFR For African Americans > 60 (> 60); eGFR For Non-African Americans > 60 (> 60)
[2017-02-22] MEDS: *HR* Heparin 5,000 UNIT/ML VIAL SQ SCH ×3 (06:58→22:05)
[2017-02-22] MEDS: BuPROPion SR (12 HR) 100 MG TABLET PO SCH ×2 (10:09→22:05)
[2017-02-22] MEDS: Magnesium Oxide 400 MG TABLET PO SCH (10:09)
[2017-02-22] MEDS: ARIPiprazole 10 MG TABLET PO SCH (10:09)
[2017-02-22] MEDS: 0.9 % Sodium Chloride 1,000 ML IVC SCH ×2 (10:16→15:35)
--- NOTE | 2017-02-22 16:48 | Discharge Summary ---
Date of Encounter: 02/22/17 Time of Encounter: 16:46 - Discharge Diagnosis (1) Hyperkalemia Priority: Primary Status: Acute (2) Urinary retention Priority: Secondary Status: Acute (3) Acute renal failure Priority: Secondary Status: Acute Qualifiers: Acute renal failure type: unspecified Qualified Code(s): N17.9 - Acute kidney failure, unspecified (4) Schizophrenia Priority: Secondary Status: Chronic Qualifiers: Schizophrenia type: paranoid schizophrenia Qualified Code(s): F20.0 - Paranoid schizophrenia (5) Essential hypertension Priority: Secondary Status: Chronic (6) BPH (benign prostatic hyperplasia) Priority: Secondary Status: Chronic Qualifiers: Prostatic enlargement morphology: unspecified morphology Lower urinary tract symptom presence: presence of symptoms unspecified Qualified Code(s): N40.0 - Benign prostatic hyperplasia without lower urinary tract symptoms - Discharge Medications Prescriptions: Tamsulosin HCl [Flomax] 0.4 mg PO DAILY #30 cap.er.24h Home Medications: ARIPiprazole [Abilify] 10 mg PO DAILY 01/14/16 [History] BuPROPion SR (12 HR) [Wellbutrin SR] 100 mg PO BID 01/14/16 [History] Haloperidol [Haldol] 5 mg PO TID 01/14/16 [History] Lisinopril [Zestril] 5 mg PO DAILY 01/14/16 [History] Haloperidol Decanoate [Haldol] 25 mg IM Q2W 02/16/17 [History] [place]-3 Fatty Acids [Fish Oil Concentrate] 3,000 mg PO DAILY 02/16/17 [History] Saw [place]/Pumpkin/Pyg/Zn/B6 [ Saw [place] Complex Sftgel] 1 each PO DAILY 02/17/17 [History] Magnesium Oxide [Mag-Ox] 400 mg PO DAILY tablet 02/22/17 [Rx] Omeprazole [PriLOSEC] 20 mg PO DAILY@0630 capsule.dr 02/22/17 [Rx] Simvastatin [Zocor] 10 mg PO HS tablet 02/22/17 [Rx] Tamsulosin HCl [Flomax] 0.4 mg PO DAILY #30 cap.er.24h 02/22/17 [Rx] Tamsulosin [Flomax] 0.4 mg PO HS capsule 02/22/17 [Rx] Allergies/Adverse Reactions: Allergies quetiapine Adverse Reaction (Verified 01/14/16 11:27) See Comments tacycardia pt states almost killed him Date of admission: 02/16/17 23:19 Primary care physician: [facility] Consults: 02/17/17 15:23 Consult to Physical Therapy [CONS] Routine Comment: Evaluate, develop and implement POC Reason for Consult: Discharge needs 02/17/17 15:24 Consult to Occupational Therapy [CONS] Routine Comment: Evaluate, develop and implement POC Reason for Consult: poss. discharge needs 02/22/17 07:20 Consult to Mail Opener [CONS] Routine Reason for SW Consult: see if inpt psych at [facility] will take pt per , yes medically ok to go Discharging clinician: Jordy Segundo Anticipated date of discharge: 02/22/17 - Patient Status Disposition: Transfer Other Condition: Fair Functional capacity at discharge: bed bound Overall status at discharge: patient is not back to baseline - Discharge Instructions Follow Up With: [facility],PCP [Primary Care Provider] - 02/25/17 12:45 pm - Diet and Activity Activity: as per physical therapy Interval History: Mr. Centeno is a 66 year old male with history of paranoid schizophrenia was brought in by family with complaints of poor oral intake, not communicating for the last 2-3 days. He was initially taken to the emergency room at [facility] where he was noted to have abnormal labs including elevated serum creatinine, serum potassium, serum lipase and mild leukocytosis and he was transferred to our emergency room for further workup. Patient is unable to provide any history at this time, which is obtained from review of emergency room records. No family at bedside. Patient is noted to be in mild distress, intermittently reports abdominal pain but is unable to characterize or give specific details regarding the pain. Patient has been having poor oral intake for the last 2-3 days, not speaking or communicating with family members per emergency room records. Reported epigastric and lower abdominal pain for . No vomiting or diarrhea. Hospital course: Mr. Centeno is a 66 year old male he initially was admitted due to hyperkalemia , uncontrolled hypertension,dehydration and acute kidney injury. His hyperkalemia resolved, he is acute kidney injury also improved. He developed some urinary retention, we put the patient on Flomax and inserted a Ames catheter, his urine output has been stable. The patient has not had any fever, no leukocytosis. He had a CT of the abdomen, there was no evidence of hydronephrosis or kidney stones. He was found to have cholelithiasis, however no signs of cholecystitis were noted. He would benefit from an evaluation with urology as outpatient. We avoided nephrotoxic medications during this hospital admission. The patient has a long history of mental disorders, he has a history of schizophrenia and he has been in the inpatient unit at the [place]. At this point he is medically optimized, he does not have any infection going on, his vital signs are otherwise stable his potassium levels have been corrected along with his kidney function. I discussed this case with the patient's , the plan is to transfer the patient to the inpatient unit psych at the [place]. - Time Spent with Patient Total time spent providing and/or coordinating discharge services: - Constitutional Vitals: Temp Pulse Resp BP Pulse Ox 98.1 F 83 18 158/79 92 02/22/17 16:05 02/22/17 16:05 02/22/17 16:05 02/22/17 16:05 02/22/17 16:05 General appearance: Present: A&O X 2. Absent: answers questions appropriately - Head Head exam: Present: atraumatic, normocephalic - Eye Eye exam: Present: PERRL, conjuntiva pink, sclera anicteric Pupils: Present: PERRL - Neck Neck exam general surgery: Present: supple, trachea midline. Absent: lymphadenopathy - Respiratory Respiratory exam: Present: CTAB. Absent: accessory muscle use, rales, rhonchi, wheezes - Cardiovascular Cardiovascular exam: Present: RRR, +S1, +S2. Absent: diastolic murmur, gallop, rubs, systolic murmur - GI/Abdominal GI/Abdominal exam: Present: normal bowel sounds, soft, no peritoneal signs. Absent: distended, tenderness - Extremities Exam Extremities exam: Present: warm, radial pulses palpable and symetrical. Absent : calf tenderness, cyanotic, pedal edema - Neurological Exam Neurological exam: Present: alert. Absent: pronater drift, facial droop, speech deficit - Skin Skin exam: Present: dry, intact
[2017-02-23 04:33] LABS: Basophils % 0.3 %; Eosinophils # 0.2 K/mcL (0.0-0.6); Hematocrit 34.7 % (37.5-50.1); Hemoglobin 11.8 g/dL (12.9-16.9); Immature Granulocytes % 0.3 % (0-4); Lymphocytes # 1.5 K/mcL (0.6-4.6); Lymphocytes % 23.2 %; Mean Corpuscular Volume 88.3 fL (83.0-100.0); Mean Platelet Volume 10.6 fL (9.4-12.4); Monocytes # 0.6 K/mcL (0.0-1.3); Monocytes % 9.2 %; Neutrophils # 4.3 K/mcL (1.6-8.9); Platelet Count 181 K/mcL (140-400); Red Blood Count 3.93 M/mcL (4.19-5.50); Red Cell Distribution Width 12.3 % (11.5-14.5)
[2017-02-23 04:46] LABS: BUN/Creatinine Ratio 25 (6-26); Blood Urea Nitrogen 20 mg/dL (8-26); Calcium 8.8 mg/dL (8.6-10.8); Carbon Dioxide 27 mEq/L (19-29); Chloride 102 mEq/L (98-109); Glucose 92 mg/dL (70-99); Osmolality,Calculated 288 (280-300); Potassium 4.2 mEq/L (3.5-4.5); Sodium 138 mEq/L (136-145); eGFR For African Americans > 60 (> 60); eGFR For Non-African Americans > 60 (> 60)
[2017-02-23] MEDS: *HR* Heparin 5,000 UNIT/ML VIAL SQ SCH ×3 (06:08→23:08)
[2017-02-23] MEDS: ARIPiprazole 10 MG TABLET PO SCH (08:55)
[2017-02-23] MEDS: Magnesium Oxide 400 MG TABLET PO SCH (08:55)
[2017-02-23] MEDS: BuPROPion SR (12 HR) 100 MG TABLET PO SCH (08:55)
--- NOTE | 2017-02-23 12:09 | Physician Discharge Referral ---
[facility]Care Referral Info [facility]: [facility] - Diagnosis (1) Hyperkalemia Priority: Primary Status: Acute (2) Acute renal failure Priority: Secondary Status: Acute (3) Schizophrenia Priority: Secondary Status: Chronic (4) Essential hypertension Priority: Secondary Status: Chronic (5) BPH (benign prostatic hyperplasia) Priority: Secondary Status: Chronic (6) Urinary retention Priority: Secondary Status: Acute - Transfer Medications Prescriptions: Tamsulosin HCl [Flomax] 0.4 mg PO DAILY #30 cap.er.24h Home Medications: ARIPiprazole [Abilify] 10 mg PO DAILY 01/14/16 [History] BuPROPion SR (12 HR) [Wellbutrin SR] 100 mg PO BID 01/14/16 [History] Haloperidol [Haldol] 5 mg PO TID 01/14/16 [History] Lisinopril [Zestril] 5 mg PO DAILY 01/14/16 [History] Haloperidol Decanoate [Haldol] 25 mg IM Q2W 02/16/17 [History] [place]-3 Fatty Acids [Fish Oil Concentrate] 3,000 mg PO DAILY 02/16/17 [History] Saw [place]/Pumpkin/Pyg/Zn/B6 [Hm Saw [place] Complex Sftgel] 1 each PO DAILY 02/17/17 [History] Magnesium Oxide [Mag-Ox] 400 mg PO DAILY tablet 02/22/17 [Rx] Omeprazole [PriLOSEC] 20 mg PO DAILY@0630 capsule. 02/22/17 [Rx] Simvastatin [Zocor] 10 mg PO HS tablet 02/22/17 [Rx] Tamsulosin HCl [Flomax] 0.4 mg PO DAILY #30 cap.er.24h 02/22/17 [Rx] Tamsulosin [Flomax] 0.4 mg PO HS capsule 02/22/17 [Rx] Allergies/Adverse Reactions: Allergies quetiapine Adverse Reaction (Verified 01/14/16 11:27) See Comments tacycardia pt states almost killed him - Respiratory Orders Smoking Cessation: Smoking cessation has been advised. For more information, call the [place] Tobacco Quit Line at 9-037-ZQBM-NOW. CERTIFICATION: I certify that the transfer of the above named patient to an Extended Care Facility is necessary for the continuing treatment of the diagnosis listed. The above information is true and accurate reflection of patient's current condition. Confidential - Redisclosure prohibited without a patient's written consent.
--- NOTE | 2017-02-23 12:12 | Internal Med Progress Note ---
Date of Encounter: 02/23/17 Time of Encounter: 12:09 ( ) - Subjective Interval history: nonverbal noncooperative hx of such behavior in the past awaiting bed availability for transfer as per family such episodes have happened in the past given history of schizophrenia - Assessment and plan (1) Hyperkalemia Current Visit: Yes Status: Acute Assessment and plan: resolved, will continue monitoring. (2) Urinary retention Current Visit: Yes Status: Acute Assessment and plan: Continue with [place] Continue Flomax was ordered. Apparently the patient was on Flomax as outpatient but he stopped according to his . No evidence of hydronephrosis in CT of the abdomen. No evidence of kidney stones either, patient's states that the patient was passing kidney stones in the urine. Will benefit from an evaluation with urology as outpatient. Will be discharged with richardson catheter (3) Acute renal failure Current Visit: Yes Status: Acute Assessment and plan: Renal function back to baseline continue to monitor Qualifiers: Acute renal failure type: unspecified Qualified Code(s): N17.9 - Acute kidney failure, unspecified (4) Schizophrenia Current Visit: Yes Status: Chronic Assessment and plan: continue with home medications. patient with long history of mental health disorders, he was even admitted at the inpatient psych unit at the [place]. he is medically stable for transfer to the [place] inpatient psych unit-awaiting bed placement Qualifiers: Schizophrenia type: paranoid schizophrenia Qualified Code(s): F20.0 - Paranoid schizophrenia (5) Essential hypertension Current Visit: Yes Status: Chronic (6) BPH (benign prostatic hyperplasia) Current Visit: Yes Status: Chronic Qualifiers: Prostatic enlargement morphology: unspecified morphology Lower urinary tract symptom presence: presence of symptoms unspecified Qualified Code(s): N40.0 - Benign prostatic hyperplasia without lower urinary tract symptoms - Constitutional Vitals: Temp Pulse Resp BP Pulse Ox 98.4 F 85 18 154/82 94 02/23/17 11:55 02/23/17 11:55 02/23/17 11:55 02/23/17 11:55 02/23/17 11:55 General appearance: Present: A&O X 0, no acute distress. Absent: answers questions appropriately - Head Head exam: Present: atraumatic, normocephalic - Eye Eye exam: Present: normal appearance, conjuntiva pink, sclera anicteric - Respiratory Respiratory exam: Present: CTAB. Absent: accessory muscle use, rales, rhonchi, wheezes - Cardiovascular Cardiovascular exam: Present: RRR, +S1, +S2. Absent: diastolic murmur, gallop, rubs, systolic murmur - GI/Abdominal GI/Abdominal exam: Present: normal bowel sounds, soft, no peritoneal signs. Absent: distended, tenderness - Extremities Exam Extremities exam: Present: warm, radial pulses palpable and symetrical. Absent : calf tenderness, cyanotic, pedal edema Internal Medicine: Result - Labs CBC & Chem 7: 02/23/17 03:54 02/23/17 03:54 Labs: Short CBC 02/23/17 Range/Units 03:54 WBC 6.6 (4.3-11.1) K/mcL Hgb 11.8 L (12.9-16.9) g/dL Hct 34.7 L (37.5-50.1) % Plt Count 181 (140-400) K/mcL Neutrophils # 4.3 (1.6-8.9) K/mcL BMP 02/23/17 03:54 Sodium 138 Potassium 4.2 Chloride 102 Carbon Dioxide 27 BUN 20 Creatinine 0.81 Glucose 92 Calcium 8.8 - Impressions Impressions Head CT 02/22/17 16:57 IMPRESSION: No acute intracranial abnormality. Slight to mild atrophy is present appropriate for age. D/ / Anson Medina MD / Anson Medina MD Interpreting Provider: Anson Medina MD Consult Discharge Plan - Plan [facility]: [facility] [Primary Care Provider[facility] - 02/25/17 12:45 pm Prescriptions: Tamsulosin HCl [Flomax] 0.4 mg PO DAILY #30 cap.er.24h
[2017-02-23] MEDS: 0.9 % Sodium Chloride 1,000 ML IVC SCH ×2 (12:38→18:12)
[2017-02-24] MEDS ORDERED: Haloperidol Lactate 5 MG/ML VIAL IVP ONE (03:46)
[2017-02-24] MEDS: *HR* Heparin 5,000 UNIT/ML VIAL SQ SCH ×3 (06:05→21:06)
[2017-02-24] MEDS: ARIPiprazole 10 MG TABLET PO SCH (09:57)
[2017-02-24] MEDS: Magnesium Oxide 400 MG TABLET PO SCH (09:57)
--- NOTE | 2017-02-24 14:15 | Internal Med Progress Note ---
Date of Encounter: 02/24/17 Time of Encounter: 10:05 - Subjective Interval history: Pt seen and examined at bedside. Pt remains nonverbal and refusing to communicate. as per the nursing staff, patient was alert this morning and had part of his breakfast. Pt has history of eliciting such behavior in the past and has chronic history of relapses with worsening of his mental illness. Discharge pending acceptance to the [facility] psych inpatient unit . - Assessment and plan (1) Hyperkalemia Current Visit: Yes Status: Acute Assessment and plan: resolved, will continue monitoring. (2) Urinary retention Current Visit: Yes Status: Acute Assessment and plan: Continue with Richardson Continue Flomax was ordered. Apparently the patient was on Flomax as outpatient but he stopped according to his . No evidence of hydronephrosis in CT of the abdomen. No evidence of kidney stones either, patient's states that the patient was passing kidney stones in the urine. Will benefit from an evaluation with urology as outpatient. Will be discharged with richardson catheter (3) Acute renal failure Current Visit: Yes Status: Acute Assessment and plan: Renal function back to baseline continue to monitor Qualifiers: Acute renal failure type: unspecified Qualified Code(s): N17.9 - Acute kidney failure, unspecified (4) Schizophrenia Current Visit: Yes Status: Chronic Assessment and plan: continue with home medications. patient with long history of mental health disorders, he was even admitted at the inpatient psych unit at the [facility]. he is medically stable for transfer to the [facility] inpatient psych unit-awaiting bed placement Qualifiers: Schizophrenia type: paranoid schizophrenia Qualified Code(s): F20.0 - Paranoid schizophrenia (5) Essential hypertension Current Visit: Yes Status: Chronic (6) BPH (benign prostatic hyperplasia) Current Visit: Yes Status: Chronic Qualifiers: Prostatic enlargement morphology: unspecified morphology Lower urinary tract symptom presence: presence of symptoms unspecified Qualified Code(s): N40.0 - Benign prostatic hyperplasia without lower urinary tract symptoms Noted to be requiring low flow oxygen therapy without any indication. CXR and CT scans negative for any cardiopulmonary process. Will closely monitor - Constitutional Vitals: Temp Pulse Resp BP Pulse Ox 98.8 F 70 16 107/69 93 02/24/17 12:10 02/24/17 12:10 02/24/17 12:10 02/24/17 12:10 02/24/17 12:10 General appearance: Present: A&O X 0, no acute distress. Absent: answers questions appropriately - Head Head exam: Present: atraumatic, normocephalic - Eye Eye exam: Present: normal appearance, conjuntiva pink, sclera anicteric - Respiratory Respiratory exam: Present: CTAB. Absent: accessory muscle use, rales, rhonchi, wheezes - Cardiovascular Cardiovascular exam: Present: RRR, +S1, +S2. Absent: diastolic murmur, gallop, rubs, systolic murmur - GI/Abdominal GI/Abdominal exam: Present: normal bowel sounds, soft, no peritoneal signs. Absent: distended, tenderness - Extremities Exam Extremities exam: Present: warm, radial pulses palpable and symetrical Internal Medicine: Result - Labs CBC & Chem 7: 02/23/17 03:54 02/23/17 03:54 - Impressions Impressions Chest X-Ray 02/24/17 11:32 IMPRESSION: 1. Low lung volumes with bibasilar atelectasis. D/ / Luis Valentin MD / Luis Valentin MD Interpreting Provider: Luis Valentin MD Consult Discharge Plan - Plan [facility] Provider[facility] - 02/25/17 12:45 pm Prescriptions: Tamsulosin HCl [Flomax] 0.4 mg PO DAILY #30 cap.er.24h
[2017-02-24] MEDS: 0.9 % Sodium Chloride 1,000 ML IVC SCH (19:51)
[2017-02-24] MEDS: Acetaminophen 325 MG TABLET PO PRN (23:42)
[2017-02-25 05:26] VITALS: BP 135/76
[2017-02-25] MEDS: *HR* Heparin 5,000 UNIT/ML VIAL SQ SCH (06:01)
[2017-02-25] MEDS: Magnesium Oxide 400 MG TABLET PO SCH (09:36)
[2017-02-25] MEDS: ARIPiprazole 10 MG TABLET PO SCH (09:36)
--- NOTE | 2017-02-25 10:29 | Internal Med Progress Note ---
Date of Encounter: 02/25/17 Time of Encounter: 10:26 - Subjective Interval history: Pt seen and examined at bedside. Remains nonverbal refusing to communicate. Has brief moments of clearity in the morning when he is verbal. AT this time in no distress. Vitals within normal limits. I spoke with Dr. SANDOVAL from the [facility] who has accepted the patient for transfer to their inpatient unit. He will be transferred to the psych inpatient unit from there onwards. Patient will be discharged to inpatient [facility] medical unit today. - Assessment and plan (1) Hyperkalemia Current Visit: Yes Status: Acute Assessment and plan: resolved (2) Urinary retention Current Visit: Yes Status: Acute Assessment and plan: Continue with Richardson Continue Flomax was ordered. Apparently the patient was on Flomax as outpatient but he stopped according to his . No evidence of hydronephrosis in CT of the abdomen. No evidence of kidney stones either, patient's states that the patient was passing kidney stones in the urine. Will benefit from an evaluation with urology as outpatient. Will be discharged with richardson catheter and patient to obtain urology eval upon discharge (3) Acute renal failure Current Visit: Yes Status: Acute Assessment and plan: Renal function back to baseline continue to monitor Qualifiers: Acute renal failure type: unspecified Qualified Code(s): N17.9 - Acute kidney failure, unspecified (4) Schizophrenia Current Visit: Yes Status: Chronic Assessment and plan: continue with home medications. patient with long history of mental health disorders, he was even admitted at the inpatient psych unit at the [facility]. Will be transferred to inpatient [facility] medical unit today and will further go to their inpatient psych unit once a bed is available Qualifiers: Schizophrenia type: paranoid schizophrenia Qualified Code(s): F20.0 - Paranoid schizophrenia (5) Essential hypertension Current Visit: Yes Status: Chronic (6) BPH (benign prostatic hyperplasia) Current Visit: Yes Status: Chronic Qualifiers: Prostatic enlargement morphology: unspecified morphology Lower urinary tract symptom presence: presence of symptoms unspecified Qualified Code(s): N40.0 - Benign prostatic hyperplasia without lower urinary tract symptoms - Constitutional Vitals: Temp Pulse Resp BP Pulse Ox 98.1 F 79 18 135/76 93 02/25/17 05:24 02/25/17 05:24 02/25/17 05:24 02/25/17 05:24 02/25/17 05:24 General appearance: Present: A&O X 0, no acute distress. Absent: answers questions appropriately - Head Head exam: Present: atraumatic, normocephalic - Eye Eye exam: Present: conjuntiva pink, sclera anicteric - Respiratory Respiratory exam: Present: CTAB. Absent: accessory muscle use, rales, rhonchi, wheezes - Cardiovascular Cardiovascular exam: Present: RRR, +S1, +S2. Absent: diastolic murmur, gallop, rubs, systolic murmur - GI/Abdominal GI/Abdominal exam: Present: normal bowel sounds, soft, no peritoneal signs. Absent: distended, tenderness - Extremities Exam Extremities exam: Present: warm, radial pulses palpable and symetrical. Absent : pedal edema Internal Medicine: Result - Labs CBC & Chem 7: 02/23/17 03:54 02/23/17 03:54 - Impressions Impressions Chest X-Ray 02/24/17 11:32 IMPRESSION: 1. Low lung volumes with bibasilar atelectasis. D/ / Luis Valentin MD / Luis Valentin MD Interpreting Provider: Luis Valentin MD Consult Discharge Plan - Plan [facility]errals: [facility]Primary Care Provider] - 02/25/17 12:45 pm Prescriptions: Tamsulosin HCl [Flomax] 0.4 mg PO DAILY #30 cap.er.24h
--- NOTE | 2017-02-26 16:14 | Electrocardiograph Report ---
[place] [id number] Test Date: 2017-02-25 Pat Name: Abram Centeno Department: 112 Room: [facility] Gender: M Material Clerk: LAILA : 1950 Requested By: Elsi Mondragon Order Number: [id number] Reading MD: Jennifer Ford Measurements Intervals [place] Rate: 105 P: 53 UT: 129 QRS: 57 QRSD: 84 T: 68 QT: 319 QTc: 380 Interpretive Statements SINUS TACHYCARDIA NONSPECIFIC T-WAVE ABNORMALITY ABNORMAL RHYTHM ECG Electronically Signed On 02-26-2017 16:12:29 EDT by Jennifer Ford
== END 2017-02-25 11:56 | disposition other institution (70) | DRG 683 ==
LOC: EMEROO 20:49 → 2ANU 23:19 → SUATTDRO 23:19 → 2ANU 02-17 01:10
PROVIDERS: ADMIT Internal Medicine; ATTEND Internal Medicine

== ENCOUNTER 2017-06-19 20:17 | Inpatient (IN) ==
[2017-06-19] MEDS ORDERED: 0.9 % Sodium Chloride 500 ML IVC ONE (20:50)
[2017-06-19 21:45] LABS: Basophils % 0.3 %; Eosinophils # 0.2 K/mcL (0.0-0.6); Eosinophils % 1.9 %; Hematocrit 40.9 % (37.5-50.1); Hemoglobin 13.2 g/dL (12.9-16.9); Immature Granulocytes % 0.1 % (0-4); Lymphocytes # 2.5 K/mcL (0.6-4.6); Mean Corpuscular HGB Conc 32.3 g/dL (31.6-35.5); Mean Corpuscular Volume 86.7 fL (83.0-100.0); Mean Platelet Volume 9.3 fL (9.4-12.4); Monocytes # 0.7 K/mcL (0.0-1.3); Monocytes % 8.6 %; Neutrophils # 4.5 K/mcL (1.6-8.9); Platelet Count 167 K/mcL (140-400); Red Blood Count 4.72 M/mcL (4.19-5.50); Red Cell Distribution Width 12.1 % (11.5-14.5); Segmented Neutrophils % 57.1 %
[2017-06-19 21:50] LABS: INR 1.1; Prothrombin Time 11.6 Seconds (9.4-12.1)
[2017-06-19 21:52] LABS: Activated Partial Thrombo Time 26.1 Seconds (26.0-36.0)
[2017-06-19 22:02] LABS: BUN/Creatinine Ratio 11 (6-26); Blood Urea Nitrogen 11 mg/dL (8-26); Calcium 9.4 mg/dL (8.6-10.8); Carbon Dioxide 29 mEq/L (19-29); Chloride 99 mEq/L (98-109); Glucose 95 mg/dL (70-99); Osmolality,Calculated 279 (280-300); Potassium 4.5 mEq/L (3.5-4.5); Sodium 135 mEq/L (136-145); eGFR For African Americans > 60 (> 60); eGFR For Non-African Americans > 60 (> 60)
--- NOTE | 2017-06-19 22:21 | Emergency Department Note ---
Disposition Clinical Impression: NSTEMI (non-ST elevation myocardial infarction) Disposition: Admitted As Inpatient Condition: Fair [facility]errals: [facility] [Primary Care Provider] - Forms: ED Satisfaction Letter Time of Disposition: 23:30 Chest Pain HPI - General Chief Complaint: ED Chest Pain Stated Complaint: Chest Pain Time Seen by Provider: 06/19/17 20:26 Source: EMS Limitations: no limitations Vital Signs Reviewed: Yes Nursing Notes Reviewed: Yes - History of Present Illness HPI Narrative: Patient 66-year-old male brought in from the [facility] for suspected chest pain. Reports from EMS from the [facility] states that patient has an elevated troponin. On examination patient states he does not have any chest pain or abdominal pain. Patient has psych history that makes his assessment difficult. Patient at one point time states he has abdominal pain of point time he says he does not have abdominal pain patient clearly states he is not having chest pain. [facility] the [facility] provided. Severity scale (1-10): 0 - Related Data Home Medications Medication Instructions Recorded Confirmed ARIPiprazole [Abilify] 10 mg PO DAILY 01/14/16 02/16/17 BuPROPion SR (12 HR) [Wellbutrin 100 mg PO BID 01/14/16 02/16/17 SR] Haloperidol [Haldol] 5 mg PO TID 01/14/16 02/16/17 Lisinopril [Zestril] 5 mg PO DAILY 01/14/16 02/16/17 Haloperidol Decanoate [Haldol] 25 mg IM Q2W 02/16/17 02/16/17 [place]-3 Fatty Acids [Fish Oil 3,000 mg PO DAILY 02/16/17 02/16/17 Concentrate] [place]/Pumpkin/Pyg/Zn/B6 [Hm 1 each PO DAILY 02/17/17 02/17/17 [place] Complex Sftgel] Previous Rx's Medication Instructions Recorded Magnesium Oxide [Mag-Ox] 400 mg PO DAILY tablet 02/22/17 Omeprazole [PriLOSEC] 20 mg PO DAILY@0630 capsule. 02/22/17 Simvastatin [Zocor] 10 mg PO HS tablet 02/22/17 Tamsulosin HCl [Flomax] 0.4 mg PO DAILY #30 cap.er.24h 02/22/17 Tamsulosin [Flomax] 0.4 mg PO HS capsule 02/22/17 Allergies Allergy/AdvReac Type Severity Reaction Status Date / Time quetiapine AdvReac See Verified 01/14/16 11:27 Comments Review of Systems: As Per HPI Limitations: ROS unobtainable due to patients medical condition Chest Pain PMH - Past Medical History Medical history: Reports: hyperlipidemia, hypertension, migraine Surgical history: Reports: other Psychiatric history: Reports: anxiety, schizophrenia - Social History Smoking Status: Unknown if ever smoked Alcohol use: Reports: unknown Drug use: Reports: unknown Physical Exam - General Limitations: no limitations General appearance: alert - Head Head exam: atraumatic, normocephalic, normal inspection - Eye Eye exam: Present: normal appearance, PERRL, EOMI - ENT ENT exam: normal exam, normal oropharynx, mucous membranes moist - Chest Chest inspection: Present: normal inspection, symmetric chest wall rise - Respiratory Respiratory exam: Present: normal lung sounds bilaterally - Cardiovascular Cardiovascular exam: Present: regular rate, normal rhythm, normal heart sounds - Abdominal Exam Abdominal exam: Present: tenderness Abdominal tenderness: Present: RLQ - Extremities Exam Extremities exam: Present: normal inspection - Expanded Lower Extremity Exam Hip/Pelvis exam: Present: normal inspection, full ROM Upper leg exam: Present: normal inspection, full ROM Knee exam: Present: normal inspection, full ROM Lower leg exam: Present: normal inspection, full ROM Ankle exam: Present: normal inspection, full ROM Foot/toe exam: Present: normal inspection, full ROM Neurovascular/Tendon exam: Absent: motor deficit, sensory deficit, tendon deficit - Back Exam Back exam: Present: normal inspection. Absent: tenderness, CVA tenderness (R), CVA tenderness (L) Course Vital Signs Temperature 98.1 F 06/19/17 20:18 Pulse Rate 74 06/19/17 20:18 Respiratory Rate 20 06/19/17 20:18 Blood Pressure 131/71 06/19/17 20:18 O2 Sat by Pulse Oximetry 92 06/19/17 20:18 Temperature 98.1 F 06/19/17 20:18 Pulse Rate 74 06/19/17 20:18 Respiratory Rate 20 06/19/17 20:18 Blood Pressure 131/71 06/19/17 20:18 O2 Sat by Pulse Oximetry 92 06/19/17 20:18 Oxygen Delivery Oxygen Delivery Room Air Chest Pain - MDM Narrative Medical decision making narrative: Patient with unclear history but has reported elevated troponin has an elevated troponin here of 0.13. Patient states she does not have any chest pain. Patient's EKG shows a lot of artifact but no signs of ischemia. Resist normal sinus rhythm at 88 bpm. There is EKG also shows no signs ischemia but is sinus tachycardia at a rate of 105 bpm. Respirations labs are negative for any abnormalities. Patient will be admitted for NSTEMI. D-dimer is taken and was negative. Awaiting results from CT abdomen and pelvis. Dr. Wallis has accepted the patient for admission at 2306 - Lab Data Lab results reviewed: Yes I reviewed the patient's lab results. Lab results narrative: Short CBC 06/19/17 Range/Units 21:32 WBC 7.8 (4.3-11.1) K/mcL Hgb 13.2 (12.9-16.9) g/dL Hct 40.9 (37.5-50.1) % Plt Count 167 (140-400) K/mcL Neutrophils # 4.5 (1.6-8.9) K/mcL BMP 06/19/17 Range/Units 21:32 Sodium 135 L (136-145) mEq/L Potassium 4.5 (3.5-4.5) mEq/L Chloride 99 (98-109) mEq/L Carbon Dioxide 29 (19-29) mEq/L BUN 11 (8-26) mg/dL Creatinine 1.02 (0.72-1.25) mg/dL Glucose 95 (70-99) mg/dL Calcium 9.4 (8.6-10.8) mg/dL Cardiac Enzymes 06/19/17 Range/Units 21:32 Troponin I 0.13 H* (0-0.03) ng/mL Result diagrams: 06/19/17 21:32 06/19/17 21:32 Lab Results 06/19/17 06/19/17 06/19/17 Range/Units 21:32 21:32 21:32 WBC 7.8 (4.3-11.1) K/mcL RBC 4.72 (4.19-5.50) M/mcL Hgb 13.2 (12.9-16.9) g/dL Hct 40.9 (37.5-50.1) % MCV 86.7 (83.0-100.0) fL MCH 28.0 (28.0-33.3) pg MCHC 32.3 (31.6-35.5) g/dL RDW 12.1 (11.5-14.5) % Plt Count 167 (140-400) K/mcL MPV 9.3 L (9.4-12.4) fL Immature Gran % 0.1 (0-4) % Seg Neutrophils % 57.1 % Lymphocytes % 32.0 % Monocytes % 8.6 % Eosinophils % 1.9 % Basophils % 0.3 % Neutrophils # 4.5 (1.6-8.9) K/mcL Lymphocytes # 2.5 (0.6-4.6) K/mcL Monocytes # 0.7 (0.0-1.3) K/mcL Eosinophils # 0.2 (0.0-0.6) K/mcL Basophils # 0.0 (0.0-0.2) K/mcL PT 11.6 (9.4-12.1) Seconds INR 1.1 APTT 26.1 (26.0-36.0) Seconds D-Dimer 499 (0-500) ng/mLFEU Sodium (136-145) mEq/L Potassium (3.5-4.5) mEq/L Chloride (98-109) mEq/L Carbon Dioxide (19-29) mEq/L BUN (8-26) mg/dL Creatinine (0.72-1.25) mg/dL Est GFR ( Amer) (> 60) Est GFR (Non-Af Amer) (> 60) BUN/Creatinine Ratio (6-26) Glucose (70-99) mg/dL Calculated Osmolality (280-300) Calcium (8.6-10.8) mg/dL Total Bilirubin (0.2-1.2) mg/dL Direct Bilirubin (0.0-0.5) mg/dL Indirect Bilirubin (0.0-1.2) mg/dL AST (5-34) Units/L ALT (0-55) Units/L Alkaline Phosphatase (38-126) Units/L Troponin I (0-0.03) ng/mL Serum Total Protein (6.0-8.3) g/dL Albumin (3.5-5.0) g/dL Globulin (2.4-3.5) g/dL Albumin/Globulin Ratio (1.1-2.2) Lipase 32 (8-78) Units/L 06/19/17 06/19/17 Range/Units 21:32 21:32 WBC (4.3-11.1) K/mcL RBC (4.19-5.50) M/mcL Hgb (12.9-16.9) g/dL Hct (37.5-50.1) % MCV (83.0-100.0) fL MCH (28.0-33.3) pg MCHC (31.6-35.5) g/dL RDW (11.5-14.5) % Plt Count (140-400) K/mcL MPV (9.4-12.4) fL Immature Gran % (0-4) % Seg Neutrophils % % Lymphocytes % % Monocytes % % Eosinophils % % Basophils % % Neutrophils # (1.6-8.9) K/mcL Lymphocytes # (0.6-4.6) K/mcL Monocytes # (0.0-1.3) K/mcL Eosinophils # (0.0-0.6) K/mcL Basophils # (0.0-0.2) K/mcL PT (9.4-12.1) Seconds INR APTT (26.0-36.0) Seconds D-Dimer (0-500) ng/mLFEU Sodium 135 L (136-145) mEq/L Potassium 4.5 (3.5-4.5) mEq/L Chloride 99 (98-109) mEq/L Carbon Dioxide 29 (19-29) mEq/L BUN 11 (8-26) mg/dL Creatinine 1.02 (0.72-1.25) mg/dL Est GFR ( Amer) > 60 (> 60) Est GFR (Non-Af Amer) > 60 (> 60) BUN/Creatinine Ratio 11 (6-26) Glucose 95 (70-99) mg/dL Calculated Osmolality 279 L (280-300) Calcium 9.4 (8.6-10.8) mg/dL Total Bilirubin 0.6 (0.2-1.2) mg/dL Direct Bilirubin 0.3 (0.0-0.5) mg/dL Indirect Bilirubin 0.3 (0.0-1.2) mg/dL AST 46 H (5-34) Units/L ALT 25 (0-55) Units/L Alkaline Phosphatase 80 (38-126) Units/L Troponin I 0.13 H* (0-0.03) ng/mL Serum Total Protein 7.2 (6.0-8.3) g/dL Albumin 3.6 (3.5-5.0) g/dL Globulin 3.6 H (2.4-3.5) g/dL Albumin/Globulin Ratio 1.0 L (1.1-2.2) Lipase (8-78) Units/L - Radiology Data Radiology results reviewed: Yes I reviewed the patient's radiology results. Chest X-Ray 06/19/17 20:50 IMPRESSION: Mild right basilar segmental atelectasis versus pneumonia. D/ / Asaf Dotson MD / Asaf Dotson MD Interpreting Provider: Asaf Dotson MD - EKG Data EKG attestation: Yes I reviewed and interpreted this EKG. EKG results narrative: EKG taken 06/19/2017 at 2125 hrs. shows sinus rhythm at a rate of 88 beats male in no signs of ischemia. His EKG also shows no signs ischemia taken 02/25/2017. Heart Score - Score History: Slightly Suspicious EKG: Non Specific repolarisation Disturbance Age: Greater than 65 Risk Factors: 1-2 risk factors Troponin: 1-3x normal limit HEART Score Total: 5 Critical Care Time Critical Care Time: Yes Total Critical Care Time: 35 Attestation: Echo care time 35 minutes managing patient's and STEMI. Attestation Statement - Attestation Attestation: Patient was seen with resident physician. I reviewed the history, physical, assessment and plan, and agree with the findings. I also personally evaluated this patient and had [id number] time with this patient. 66 year old male presents to the emergency department with chief complaint of chest pain. Patient has a psych patient of the [facility] and is very difficult to obtain history from. He sort of rambles on and on without necessarily touching on the points of his reason for being here, nor is he really answering questions directly. Apparently according to the [facility] he has periods of lucidity followed by periods of confusion. But some time today he complained of chest pain. A troponin was drawn and it was positive which prompted his transfer to the hospital for admission. During the resident's evaluation he apparently had some abdominal pain. He did not complain of this for me. On examination vital signs were stable. ENT is unremarkable. Heart regular rhythm and rate. Lungs were clear. Abdomen is soft and nontender nondistended positive bowel sounds. Neurologically patient's alert but disoriented moves all extremities. Psychiatric patient is difficult to communicate with. ED course troponin was positive. X-ray and EKG were unremarkable. Case was discussed with cardiology. They agreed that the patient should be admitted for further evaluation treatment suggests perhaps heparin. Will discuss with hospitalist to arrange for admission. Should be noted a CT scan of the abdomen was also obtained because of this possible history of abdominal pain. Hemodynamically the patient remained stable on the emergency department had no complaint of chest pain. Agree with the resident physician assessment and plan.
[2017-06-19 23:25] LABS: Alanine Aminotransferase 25 Units/L (0-55); Albumin 3.6 g/dL (3.5-5.0); Alkaline Phosphatase 80 Units/L (38-126); Aspartate Amino Transferase 46 Units/L (5-34); Bilirubin,Direct 0.3 mg/dL (0.0-0.5); Bilirubin,Indirect 0.3 mg/dL (0.0-1.2); Bilirubin,Total 0.6 mg/dL (0.2-1.2); Globulin 3.6 g/dL (2.4-3.5); Total Protein 7.2 g/dL (6.0-8.3)
[2017-06-20] MEDS ORDERED: Naloxone 0.4 MG/ML INJ IVP PRN (05:53)
[2017-06-20] MEDS ORDERED: *HR* Morphine 2 MG/ML SYRINGE IVP PRN (05:53)
[2017-06-20] MEDS ORDERED: Acetaminophen 325 MG TABLET PO PRN (05:53)
--- NOTE | 2017-06-20 06:03 | Internal Med History&Physical ---
Date of Encounter: 06/20/17 Time of Encounter: 06:00 Assessment and Plan (1) Chest pain Current visit: Yes Status: Acute 1. I can not elicit any history of chest pain from patient. 2. Will cycle troponins and EKG's. 3. Will check ECHO. 4. Consult cardiology given elevated tropnin. Qualifiers: Chest pain type: unspecified Qualified Code(s): R07.9 - Chest pain, unspecified (2) Schizophrenia Current visit: No Status: Chronic 1. Continue home medications. 2. Consult psychiatry if needed. 3. 24 hour sitter. Qualifiers: Schizophrenia type: paranoid schizophrenia Qualified Code(s): F20.0 - Paranoid schizophrenia (3) Essential hypertension Current visit: No Status: Chronic 1. Continue home meds as appropriate. 2. Monitor BP and adjust meds as necessary. (4) Hyperlipidemia Current visit: No Status: Chronic 1. Continue home meds. Qualifiers: Hyperlipidemia type: unspecified Qualified Code(s): E78.5 - Hyperlipidemia , unspecified (5) DVT prophylaxis Current visit: Yes Status: Acute 1. Heparin SQ. Internal Medicine - H&P: HPI Chief complaint: ches pain Admitted From: Emergency Dept Plans for Post Hospital Care: Transfer Psych Facility History of present illness: Mr. Centeno is a 66 year old male who was sent here by EMS from the [place] inpatient facility. No history can be obtained from patient whatsoever as he is repeatedly saying phrases which do not make sense, and he does not answer questions and/or cooperative with the history. According to ER records and squad report, patient was brought in by local EMS after he complained of chest pain and became diaphoretic on the inpatient psychiatric unit at the [facility]. Apparently he had labs drawn which revealed an elevated troponin. He was therefore sent here by squad. Workup in the ER revealed that the patient had an elevated troponin and an unremarkable EKG. No further information could be obtained from patient on my interview and the emergency department. He did not comply with much of the exam as well. Past Med Surg Social Fam HX - Past Medical History Source: old records reviewed, other (ER/squad report) Medical history: hyperlipidemia, hypertension, kidney stones, migraine Psychiatric history: anxiety, schizophrenia - Past Surgical History Surgical History: appendectomy - Social History Smoking Status: Former smoker Smokeless Tobacco Status: Yes (former) Alcohol use: none Drug use: none - Family History Mother Adopted: No Family Member Ethnicity: Non- Living Status: Still Living Hx Family Cardiac Disorders: Yes (HTN, AAA) Hx Family Respiratory Disorders: Yes (COPD) Hx Family Cancer: No Hx Family GI Disorders: Yes (SBO) Hx Family Endocrine Disorder: Yes (Thyroid) Hx Family Neuromuscular Disorders: No Hx Family Neurologic Disorders: Yes (TIA) Hx Family HEENT Disorders: Yes (Eyes) Hx Family Autoimmune Disorders: No Internal Medicine - H&P: Meds ARIPiprazole [Abilify] 10 mg PO DAILY 01/14/16 [History] BuPROPion SR (12 HR) [Wellbutrin SR] 100 mg PO DAILY 01/14/16 [History] Haloperidol [Haldol] 2 mg PO TID 01/14/16 [History] Lisinopril [Zestril] 5 mg PO DAILY 01/14/16 [History] Haloperidol Decanoate [Haldol] 50 mg IM Q28D 02/16/17 [History] Tamsulosin [Flomax] 0.4 mg PO HS capsule 02/22/17 [Rx] Acetaminophen [Tylenol] 650 mg PO Q6HR PRN 06/20/17 [History] Albuterol Sulfate [Albuterol Inhaler] 1 puff IH Q6HR PRN 06/20/17 [History] LORazepam [Ativan] 1 mg PO BID 06/20/17 [History] Memantine HCl 10 mg PO DAILY 06/20/17 [History] Naproxen [EC-Naprosyn] 375 mg PO BID PRN 06/20/17 [History] Pravastatin Sodium [Pravachol] 40 mg PO HS 06/20/17 [History] Sennosides/Docusate Sodium [Senna-Docusate Sodium Tablet] 1 each PO BID [History] 3 Allergy/AdvReac Type Severity Reaction Status Date / Time quetiapine AdvReac See Verified 01/14/16 11:27 Comments ROS unobtainable: due to mental status - Constitutional Vitals: Temp Pulse Resp BP Pulse Ox 98.4 F 95 12 151/86 96 06/20/17 00:54 06/20/17 00:54 06/20/17 00:54 06/20/17 00:54 06/20/17 01:06 General appearance: Present: A&O X 0, disheveled. Absent: cooperative - Head Head exam: Present: atraumatic, normal inspection - Expanded Head Exam Head exam expanded: Absent: abrasion, contusion, general tenderness - Eye Eye exam: Present: PERRL. Absent: scleral icterus - ENT ENT exam: Present: mucous membranes dry, normal exam - Neck Neck exam general surgery: Present: full ROM, supple. Absent: tenderness - Respiratory Respiratory exam: Present: CTAB. Absent: rales, respiratory distress, rhonchi, wheezes - Cardiovascular Cardiovascular exam: Present: RRR, +S1, +S2. Absent: diastolic murmur, JVD, systolic murmur - GI/Abdominal GI/Abdominal exam: Present: soft. Absent: hepatomegaly, mass, splenomegaly, tenderness - Extremities Exam Extremities exam: Present: full ROM, warm. Absent: calf tenderness, joint swelling - Back Exam Back exam: Present: normal inspection. Absent: CVA tenderness (L), CVA tenderness (R) - Neurological Exam Neurological exam: Present: altered Additional comments: non-cooperative with exam; moves all four extremities - Psychiatric Psychiatric exam: Present: manic Additional comments: talks non-intelligble speech continuously and repeatedly; does not cooperate with interview. - Skin Skin exam: Present: dry, warm Internal Med - H&P Results - Labs CBC & Chem 7: 06/19/17 21:32 06/19/17 21:32 Labs: Cardiac Enzymes 06/20/17 Range/Units 03:00 Troponin I 0.12 H* (0-0.03) ng/mL - EKG Data -: EKG Interpreted by Myself EKG shows normal: sinus rhythm - EKG Data Prior EKG available for review: no EKG comments: 06/20/17 06:07 NSR; baseline artifact (poor quality); no acute findings - Diagnostic Studies Chest x-ray Status: image reviewed by me (negative)
[2017-06-20] MEDS ORDERED: 0.9 % Sodium Chloride 1,000 ML ONE (06:25)
[2017-06-20] MEDS ORDERED: *HR* Heparin 5,000 UNIT/ML VIAL ONE (06:25)
[2017-06-20] MEDS: *HR* Heparin 5,000 UNIT/ML VIAL SQ SCH ×2 (06:49→17:49)
[2017-06-20] MEDS: ARIPiprazole 10 MG TABLET PO SCH (09:05)
[2017-06-20] MEDS: Sennosides/Docusate Sodium TABLET PO SCH ×2 (09:05→20:29)
[2017-06-20] MEDS: *HR* LORazepam 1 MG TABLET PO SCH ×2 (09:06→20:28)
[2017-06-20] MEDS: BuPROPion SR (12 HR) 100 MG TABLET PO SCH (09:06)
--- NOTE | 2017-06-20 09:44 | Cardiology Consult Note ---
Date of Encounter: 06/20/17 Time of Encounter: 09:41 Assessment and Plan (1) Elevated troponin Current Visit: Yes Status: Acute Unclear significance. Levels are adynamic. EKG reportedly negative. At this point a conservative approach of medical mgmt. seems most approriate. Discussion w patient/family: The assessment and plan as outlined above was discussed with the patient and/or family members who expressed understanding and agreement. All questions were answered. Thank you for involving us in the care of your patient. Please call with any questions. History of Present Illness Consult date: 06/20/17 Requesting physician: Jacky Mitchell Consult reason: Elevated trop History of present illness: Mr. Centeno is a 66 year old male who presented from the psych unit at the [place]. History is difficult, unclear what symptoms the patient had. he currently denies chest pain but its unclear how much he understatnds the question. Past Med Surg Social Fam HX - Past Medical History Medical history: hyperlipidemia, hypertension, kidney stones, migraine Psychiatric history: anxiety, schizophrenia - Past Surgical History Surgical History: appendectomy - Social History Smoking Status: Former smoker Smokeless Tobacco Status: Yes (former) Alcohol use: none Drug use: none - Family History Mother Adopted: No Family Member Ethnicity: Non- Living Status: Still Living Hx Family Cardiac Disorders: Yes (HTN, AAA) Hx Family Respiratory Disorders: Yes (COPD) Hx Family Cancer: No Hx Family GI Disorders: Yes (SBO) Hx Family Endocrine Disorder: Yes (Thyroid) Hx Family Neuromuscular Disorders: No Hx Family Neurologic Disorders: Yes (TIA) Hx Family HEENT Disorders: Yes (Eyes) Hx Family Autoimmune Disorders: No Medications and Allergies ARIPiprazole [Abilify] 10 mg PO DAILY 01/14/16 [History] BuPROPion SR (12 HR) [Wellbutrin SR] 100 mg PO DAILY 01/14/16 [History] Haloperidol [Haldol] 2 mg PO TID 01/14/16 [History] Lisinopril [Zestril] 5 mg PO DAILY 01/14/16 [History] Haloperidol Decanoate [Haldol] 50 mg IM Q28D 02/16/17 [History] Tamsulosin [Flomax] 0.4 mg PO HS capsule 02/22/17 [Rx] Acetaminophen [Tylenol] 650 mg PO Q6HR PRN 06/20/17 [History] Albuterol Sulfate [Albuterol Inhaler] 1 puff IH Q6HR PRN 06/20/17 [History] LORazepam [Ativan] 1 mg PO BID 06/20/17 [History] Memantine HCl 10 mg PO DAILY 06/20/17 [History] Naproxen [EC-Naprosyn] 375 mg PO BID PRN 06/20/17 [History] Pravastatin Sodium [Pravachol] 40 mg PO HS 06/20/17 [History] Sennosides/Docusate Sodium [Senna-Docusate Sodium Tablet] 1 each PO BID [History] 3 Allergy/AdvReac Type Severity Reaction Status Date / Time quetiapine AdvReac See Verified 01/14/16 11:27 Comments All Systems Review: A 10-system review of systems was performed and is negative for pertinent findings except as documented above in the HPI. Physical Examination Vital Signs, Last 4 Hours Temp Resp BP Pulse Ox 06/20/17 08:51 98.4 F 18 143/81 96 General: No Apparent Distress HEENT: Atraumatic, Normocephaly, Mucus Membranes Moist Neck: No JVD, Normal carotid pulses Cardiac: Reg Rate and Rhythm, Normal S1 and S2, No Murmur Lungs: Normal Breath Sounds, No Wheeze, Rales, Rhonchi Neuro: No focal deficits noted Abdomen: Soft, Non-Tender Skin: No rashes noted on visualized skin Extremities: No Clubbing, No Cyanosis, No Edema, Normal Pulses Results 06/19/17 21:32 06/19/17 21:32 Lab Results 06/20/17 06/20/17 03:00 08:10 Troponin I 0.12 H* 0.11 H* - EKG Interpretation EKG results cardiology: other (Unable to locate, reportedly negative) Consult Discharge Plan - Plan [facility]errals: [facility] [Primary Care Provider] -
--- NOTE | 2017-06-20 16:51 | Event Note ---
Date of Encounter: 06/20/17 Time of Encounter: 13:30 Patient was seen and assessed at 1330. He is alert and awake, oriented and answers questions appropriately. is at the bedside. His echocardiogram was in process. He says that since March he has had some tingling in bilateral toes and some peripheral edema. Peripheral edema appears to be better, maybe + 1 to bilateral ankles. He has been inpatient at the [facility] for the last month due to unsuccessful psychiatric medication changes. Due to patient's fluctuating mental status, he will require a sitter throughout the remainder the state. He is on a locked psychiatric unit at the [facility]. Pt denies chest pain and states that sometimes the medications make the pt perform "irregular movements" and he might have been doing that instead of indicating that he was having chest pain. He denies sob, fever, nausea, vomiting , abd pain, headache, dizziness, or lightheadedness. Physical exam has been unremarkable. He has S1-S2 with regular rate and rhythm , no gallops, no clicks no murmurs. Lungs are clear with no wheezing, rhonchi, rales or respiratory distress. Abd is soft and non-distended, bowel sounds present. Pt with mininal, +1 non-pitting edema to felix lower extremities. Chest x-ray showed mild right basilar segmental atelectasis versus pneumonia. Patient has no fever, tachycardia, lungs are clear diminished. We will continue to monitor. Had abdomen pelvis CT that showed cholelithiasis, biliary dilation, mild urinary bladder distention, focal consolidation or atelectasis within right middle and right lower lobe recommend correlating with clinical evidence of pneumonia. Patient was sent for elevated troponins. Initially, troponin was 0.13, after third draw it has fallen to 0.08. He has been seen by cardiology and they recommended conservative approach of medical management at this time. We will continue to assess vitals and patient condition for pneumonia. He is not appear to be any distress at this time. There is no leukocytosis, fever, dyspnea, or tachycardia. No indication for antibiotics at this time. We will closely monitor for change in condition. Echocardiogram was done today during assessment, has not been read and results are not available. Pending stable labs and vital signs, as well as normal echocardiogram results, patient will go back to the [facility] tomorrow.
[2017-06-20] MEDS ORDERED: Haloperidol Lactate 5 MG/ML VIAL IM ONE (22:16)
[2017-06-20] MEDS ORDERED: Haloperidol Lactate 5 MG/ML VIAL ONE (22:26)
[2017-06-21 05:09] LABS: Basophils % 0.2 %; Eosinophils # 0.1 K/mcL (0.0-0.6); Eosinophils % 1.6 %; Hematocrit 40.6 % (37.5-50.1); Hemoglobin 13.3 g/dL (12.9-16.9); Immature Granulocytes % 0.2 % (0-4); Lymphocytes # 1.3 K/mcL (0.6-4.6); Lymphocytes % 25.8 %; Mean Corpuscular HGB Conc 32.8 g/dL (31.6-35.5); Mean Corpuscular Hemoglobin 28.5 pg (28.0-33.3); Mean Corpuscular Volume 86.9 fL (83.0-100.0); Mean Platelet Volume 9.6 fL (9.4-12.4); Monocytes # 0.4 K/mcL (0.0-1.3); Monocytes % 7.4 %; Neutrophils # 3.2 K/mcL (1.6-8.9); Platelet Count 172 K/mcL (140-400); Red Blood Count 4.67 M/mcL (4.19-5.50); Red Cell Distribution Width 12.2 % (11.5-14.5); Segmented Neutrophils % 64.8 %
[2017-06-21 05:29] LABS: Alanine Aminotransferase 24 Units/L (0-55); Albumin 3.2 g/dL (3.5-5.0); Albumin/Globulin Ratio 0.9 (1.1-2.2); Alkaline Phosphatase 73 Units/L (38-126); Aspartate Amino Transferase 48 Units/L (5-34); BUN/Creatinine Ratio 13 (6-26); Bilirubin,Total 0.6 mg/dL (0.2-1.2); Blood Urea Nitrogen 13 mg/dL (8-26); Calcium 9.2 mg/dL (8.6-10.8); Carbon Dioxide 27 mEq/L (19-29); Chloride 101 mEq/L (98-109); Cholesterol 132 mg/dL (< 200); Globulin 3.6 g/dL (2.4-3.5); Glucose 80 mg/dL (70-99); HDL Cholesterol 33 mg/dL (40-59); LDL Cholesterol,Calculated 79 mg/dL (0-99); Magnesium 1.9 mg/dL (1.6-2.6); Osmolality,Calculated 281 (280-300); Potassium 4.5 mEq/L (3.5-4.5); Sodium 136 mEq/L (136-145); Total Protein 6.8 g/dL (6.0-8.3); Triglycerides 98 mg/dL (< 150); eGFR For African Americans > 60 (> 60); eGFR For Non-African Americans > 60 (> 60)
[2017-06-21] MEDS: *HR* Heparin 5,000 UNIT/ML VIAL SQ SCH ×2 (06:03→17:28)
[2017-06-21] MEDS: 0.9 % Sodium Chloride 1,000 ML IVC SCH ×3 (06:49→22:15)
[2017-06-21] MEDS: *HR* LORazepam 1 MG TABLET PO SCH ×2 (08:24→21:25)
[2017-06-21] MEDS: Sennosides/Docusate Sodium TABLET PO SCH ×2 (08:24→21:25)
[2017-06-21] MEDS: ARIPiprazole 10 MG TABLET PO SCH (08:24)
[2017-06-21] MEDS: BuPROPion SR (12 HR) 100 MG TABLET PO SCH (08:24)
--- NOTE | 2017-06-21 09:48 | Cardiology Progress Note ---
Date of Encounter: 06/21/17 Time of Encounter: 09:30 Assessment and Plan (1) Elevated troponin Current Visit: Yes Status: Acute Per cardiology: -Unclear significance. -Levels are adynamic. -Echo with LVEf 60-65%, no wall motion abnormalities. -Denies chest pain. -ON statin, beta olinda. -Will add asa. -Cardiology will sign off and will follow in outpatient setting. FOllow up set. (2) Chest pain Current Visit: Yes Status: Resolved Per cardiology: -Reported chest pain at OR. -Patient denies chest pain. -Mildly elevated troponin, adynamic. Qualifiers: Chest pain type: unspecified Qualified Code(s): R07.9 - Chest pain, unspecified (3) Schizophrenia Current Visit: No Status: Chronic Per cardiology: -Known schizoprenia. -Appears appropriate today. -Management per primary service. Qualifiers: Schizophrenia type: paranoid schizophrenia Qualified Code(s): F20.0 - Paranoid schizophrenia Discussion w patient/family: The assessment and plan as outlined above was discussed with the patient who expressed understanding and agreement. All questions were answered. Thank you for involving us in the care of your patient. Please call with any questions. Discussed and reviewed with . Subjective Principal diagnosis: reported chest pain Interval history: Patient appears appropriate this morning, pleasant. 1:1 sitter at bedside. Patient denies chest pain or shortness of breath. Objective Vital Signs, Last 4 Hours Temp Pulse Resp BP Pulse Ox 06/21/17 08:27 98 06/21/17 08:21 98.0 F 57 17 101/57 98 General: Conversant, No Apparent Distress HEENT: Atraumatic, Normocephaly, Mucus Membranes Moist Neck: No JVD, Normal carotid pulses Cardiac: Reg Rate and Rhythm, Normal S1 and S2, No Murmur Lungs: Normal Breath Sounds, No Wheeze, Rales, Rhonchi Neuro: Alert and responsive, Other (Oriented to person and place. ) Abdomen: Soft, Non-Tender Skin: No rashes noted on visualized skin Musculoskeletal: No Chest Wall Tenderness Extremities: No Clubbing, No Cyanosis, No Edema, Normal Pulses Results 06/21/17 04:40 06/21/17 04:40 Lab Results Impressions Echocardiogram 06/20/17 05:53 Impressions: LVEF 60-65%. Normal LV chamber size, wall thickness and function. Mild left ventricular diastolic dysfunction. Normal right ventricular structure and function. No significant valvular dysfunction. Left Ventricular Wall Motion: Rest Echo Findings All wall segments showed normal motion. Findings: Study Quality * Technically adequate exam. ECG Findings * Normal sinus rhythm. Left Ventricle * LVEF 60-65%. * Normal LV chamber size, wall thickness and function. * Mild left ventricular diastolic dysfunction. Right Ventricle * Normal right ventricular structure and function. Left Atrium * Mildly dilated left atrium. Right Atrium * Normal right atrial size. Interatrial Septum * Interatrial septum not well evaluated. Aortic Valve * Aortic valve not well visualized. * No aortic regurgitation. * No aortic stenosis. Mitral Valve * Normal mitral valve structure and function. * No mitral regurgitation. * No mitral stenosis. Tricuspid Valve * Normal tricuspid valve structure and function. * Trace tricuspid regurgitation. * No evidence of pulmonary hypertension. Pulmonic Valve * Pulmonic valve is not well visualized. * No pulmonic regurgitation. Aorta * Normally sized aortic root. Pericardium * The pericardium appears normal. IVC * Normal IVC dimensions and inspiratory collapse. Pulmonary Artery * Normal visualized portions of the main pulmonary artery. Active Medications Acetaminophen (Tylenol) 650 mg PO Q6HR PRN PRN Reason: Mild Pain (1-3) Stop: 12/20/17 05:54 Albuterol Sulfate (Albuterol Inhaler) 1 puff IH Q6H PRN PRN Reason: Dyspnea Stop: 12/20/17 05:59 Aripiprazole (Abilify) 10 mg PO DAILY [facility] Stop: 12/20/17 09:01 Last Admin: 06/21/17 08:24 Dose: 10 mg Bupropion HCl (Wellbutrin Sr) 100 mg PO DAILY [facility] Stop: 12/20/17 09:01 Last Admin: 06/21/17 08:24 Dose: 100 mg Docusate Sodium (Colace) 100 mg PO BID PRN PRN Reason: Constipation Stop: 12/20/17 05:54 Haloperidol (Haldol) 2 mg PO TID [facility] Stop: 12/20/17 09:01 Last Admin: 06/21/17 08:24 Dose: 2 mg Heparin Sodium (Porcine) (Heparin) 5,000 unit SQ Q12HCO [facility] Stop: 12/20/17 06:01 Last Admin: 06/21/17 06:03 Dose: 5,000 unit Sodium Chloride (0.9 % Sodium Chloride) 1,000 mls @ 75 mls/hr IVC .[id number] [facility] Stop: 12/20/17 06:01 Last Admin: 06/21/17 07:32 Dose: Not Given Lisinopril (Zestril) 5 mg PO DAILY [facility] PRN Reason: Protocol Stop: 12/20/17 09:01 Last Admin: 06/21/17 08:24 Dose: 5 mg Lorazepam (Ativan) 1 mg PO BID [facility] Stop: 12/20/17 09:01 Last Admin: 06/21/17 08:24 Dose: 1 mg Memantine (Namenda) 10 mg PO DAILY [facility] Stop: 12/20/17 09:01 Last Admin: 06/21/17 08:24 Dose: 10 mg Metoprolol Tartrate (Lopressor) 12.5 mg PO BID [facility] Stop: 12/20/17 09:01 Last Admin: 06/21/17 08:22 Dose: Not Given Morphine Sulfate (Morphine Sulfate) 2 mg IVP Q4H PRN PRN Reason: Chest Pain Stop: 12/20/17 05:54 Naloxone HCl (Narcan) 0.4 mg IVP Q2MIN PRN PRN Reason: Opioid Reversal Stop: 12/20/17 05:54 Senna/Docusate Sodium (Senna Plus) 1 each PO BID [facility] PRN Reason: Protocol Stop: 12/20/17 09:01 Last Admin: 06/21/17 08:24 Dose: 1 each Simvastatin (Zocor) 20 mg PO HS [facility] PRN Reason: Protocol Stop: 12/20/17 21:01 Last Admin: 06/20/17 20:29 Dose: Not Given Tamsulosin HCl (Flomax) 0.4 mg PO HS [facility] PRN Reason: Protocol Stop: 12/20/17 21:01 Last Admin: 06/20/17 20:28 Dose: 0.4 mg Laboratory Tests 06/19/17 06/20/17 06/20/17 21:32 03:00 08:10 Hgb Creatinine Troponin I 0.13 H* 0.12 H* 0.11 H* Triglycerides Cholesterol LDL Cholesterol, Calc HDL Cholesterol 06/20/17 06/20/17 06/21/17 14:01 19:57 04:40 Hgb 13.3 Creatinine Troponin I 0.08 H* 0.05 H* Triglycerides Cholesterol LDL Cholesterol, Calc HDL Cholesterol 06/21/17 04:40 Hgb Creatinine 1.03 Troponin I Triglycerides 98 Cholesterol 132 LDL Cholesterol, Calc 79 HDL Cholesterol 33 L - Imaging and Cardiology Chest Xray: report reviewed Echo: report reviewed - EKG Interpretation EKG results cardiology: other (Telemetry reviewed with average HR previous 12 hours noted to be 67, sinus rhythm. PVCs noted.) Consult Discharge Plan - Plan [facility]errals: [facility] [Primary Care Provider] -
[2017-06-21] MEDS: Aspirin Enteric Coated 81 MG Tablet PO SCH (10:24)
--- NOTE | 2017-06-21 17:04 | Internal Med Progress Note ---
Date of Encounter: 06/21/17 Time of Encounter: 13:30 - Assessment and plan (1) Chest pain Current Visit: Yes Status: Resolved Assessment and plan: Patient denies chest pain today. Qualifiers: Chest pain type: unspecified Qualified Code(s): R07.9 - Chest pain, unspecified (2) Schizophrenia Current Visit: Yes Status: Chronic Assessment and plan: Chronic continue home medication. Patient's bed is not available to [facility] at this time. He will return once bed is available he has been cleared. Qualifiers: Schizophrenia type: paranoid schizophrenia Qualified Code(s): F20.0 - Paranoid schizophrenia (3) Essential hypertension Current Visit: Yes Status: Chronic Assessment and plan: Well-controlled inpatient setting. Chronic. Continue home medications. Continue to monitor labs. (4) Hyperlipidemia Current Visit: Yes Status: Chronic Assessment and plan: Lipid panel within normal limits. Chronic. Continue home medications. Qualifiers: Hyperlipidemia type: unspecified Qualified Code(s): E78.5 - Hyperlipidemia , unspecified (5) DVT prophylaxis Current Visit: Yes Status: Acute Assessment and plan: Heparin subcutaneous - Time Spent With Patient less than 15 minutes - Subjective Interval history: Patient was seen and assessed at 1330. and family friend are at the bedside. He is alert and oriented, answers questions appropriately. His mental status waxes and wanes, sometimes he answers questions inappropriately, but for the most part he is alert and oriented. He denies chest pain. He is returned to his baseline and and patient are both aware of inability for [facility] due to [facility] has [facility]. Questions answered. [facility] He is on a locked down psych unit for medication changes. He will need to be evaluated by [facility] physician tomorrow when bed is available for him. - Constitutional Vitals: Temp Pulse Resp BP Pulse Ox 98.0 F 57 17 101/57 98 06/21/17 08:21 06/21/17 08:21 06/21/17 08:21 06/21/17 08:21 06/21/17 08:27 General appearance: Present: A&O X 2, mild distress, pleasant, answers questions appropriately. Absent: cooperative - Head Head exam: Present: atraumatic, normal inspection, normocephalic - Eye Eye exam: Present: normal appearance, conjuntiva pink, sclera anicteric - Neck Neck exam general surgery: Present: normal inspection, tenderness, supple, trachea midline. Absent: lymphadenopathy - Respiratory Respiratory exam: Present: CTAB. Absent: accessory muscle use, rales, respiratory distress, rhonchi, wheezes - Cardiovascular Cardiovascular exam: Present: RRR, +S1, +S2. Absent: diastolic murmur, gallop, rubs, systolic murmur - GI/Abdominal GI/Abdominal exam: Present: normal bowel sounds, soft, no peritoneal signs. Absent: distended, hepatomegaly, tenderness - Extremities Exam Extremities exam: Present: normal inspection, warm, radial pulses palpable and symmetrical. Absent: calf tenderness, cyanotic, pedal edema - Neurological Exam Neurological exam: Present: alert, oriented X3, no focal deficits. Absent: facial droop, speech deficit - Skin Skin exam: Present: dry, intact, normal color, warm. Absent: rash Internal Medicine: Result - Labs CBC & Chem 7: 06/21/17 04:40 06/21/17 04:40 Labs: Short CBC 06/21/17 Range/Units 04:40 WBC 5.0 (4.3-11.1) K/mcL Hgb 13.3 (12.9-16.9) g/dL Hct 40.6 (37.5-50.1) % Plt Count 172 (140-400) K/mcL Neutrophils # 3.2 (1.6-8.9) K/mcL BMP 06/21/17 04:40 Sodium 136 Potassium 4.5 Chloride 101 Carbon Dioxide 27 BUN 13 Creatinine 1.03 Glucose 80 Calcium 9.2 Cardiac Enzymes 06/20/17 Range/Units 19:57 Troponin I 0.05 H* (0-0.03) ng/mL Liver Function 06/21/17 Range/Units 04:40 Total Bilirubin 0.6 (0.2-1.2) mg/dL AST 48 H (5-34) Units/L ALT 24 (0-55) Units/L Alkaline Phosphatase 73 (38-126) Units/L Albumin 3.2 L (3.5-5.0) g/dL - ABG Interpretation ABG results: PT/INR, D-dimer PT 11.6 Seconds (9.4-12.1) 06/19/17 21:32 D-Dimer 499 ng/mLFEU (0-500) 06/19/17 21:32 Consult Discharge Plan - Plan [facility]errals: [facility] [Primary Care Provider] -
--- NOTE | 2017-06-21 21:50 | Electrocardiograph Report ---
[address] [address] Test Date: 2017-06-19 Pat Name: Abram Centeno Department: 105 Room: 3B46 Gender: M [employer] Farmer: : 1950 Requested By: Alonzo Noyola Order Number: [id number] Reading MD: Job Jalloh MD Measurements Intervals [place] Rate: 88 P: 62 OK: 137 QRS: 53 QRSD: 96 T: 48 QT: 347 QTc: 393 Interpretive Statements SINUS RHYTHM BASELINE ARTIFACT Electronically Signed On 06-21-2017 21:49:27 EDT by Job Jalloh MD
[2017-06-21] MEDS ORDERED: *HR* LORazepam 0.5 MG TABLET PO STA (22:09)
[2017-06-22] MEDS: *HR* Heparin 5,000 UNIT/ML VIAL SQ SCH (06:58)
[2017-06-22] MEDS: Sennosides/Docusate Sodium TABLET PO SCH (09:39)
[2017-06-22] MEDS: BuPROPion SR (12 HR) 100 MG TABLET PO SCH (09:39)
[2017-06-22] MEDS: Aspirin Enteric Coated 81 MG Tablet PO SCH (09:39)
[2017-06-22] MEDS: *HR* LORazepam 1 MG TABLET PO SCH (09:39)
[2017-06-22] MEDS: ARIPiprazole 10 MG TABLET PO SCH (09:40)
[2017-06-22 12:08] VITALS: BP 98/56
--- NOTE | 2017-06-22 15:44 | Discharge Summary ---
Date of Encounter: 06/22/17 Time of Encounter: 15:40 - Discharge Diagnosis (1) Chest pain Priority: Primary Status: Resolved Comments: with chest pain and diaphoresis while at inpatient psychiatric unit [facility]. Troponin peaked at 0.13 and trended down. EKG without acute ST changes. Unable to assess the patient is having chest pain as he is nonverbal and does not answer questions or follow commands. 06/21/2017 TTE with EF 60% and no wall motion abnormalities. He was evaluated by cardiology who noted elevated troponin of unclear significance and did not suspect true ACS. Continue home statin. BB, ASA added this admission. No further workup at this time. Qualifiers: Chest pain type: unspecified Qualified Code(s): R07.9 - Chest pain, unspecified (2) Schizophrenia Priority: Primary Status: Acute Comments: Baseline mentation unknown. Appears to wax and wane per chart review. Nonverbal and will not follow commands on my exam. Continue home psychiatric medication regimen at discharge. 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 BP controlled. Continue home BP medications. BP can be monitored at [place]. (4) Hyperlipidemia Priority: Primary Status: Acute Comments: Per history. Continue home statin. Qualifiers: Hyperlipidemia type: unspecified Qualified Code(s): E78.5 - Hyperlipidemia , unspecified (5) DVT prophylaxis Priority: Primary Status: Acute Comments: heparin - Discharge Medications Prescriptions: Aspirin Enteric Coated [Aspirin EC] 81 mg PO DAILY #30 Home Medications: ARIPiprazole [Abilify] 10 mg PO DAILY 01/14/16 [History] BuPROPion SR (12 HR) [Wellbutrin SR] 100 mg PO DAILY 01/14/16 [History] Haloperidol [Haldol] 2 mg PO TID 01/14/16 [History] Lisinopril [Zestril] 5 mg PO DAILY 01/14/16 [History] Haloperidol Decanoate [Haldol] 50 mg IM Q28D 02/16/17 [History] Tamsulosin [Flomax] 0.4 mg PO HS capsule 02/22/17 [Rx] Acetaminophen [Tylenol] 650 mg PO Q6HR PRN 06/20/17 [History] Albuterol Sulfate [Albuterol Inhaler] 1 - 2 puff IH Q6HR PRN 06/20/17 [History] LORazepam [Ativan] 1 mg PO BID 06/20/17 [History] Memantine HCl 10 mg PO HS 06/20/17 [History] Naproxen [EC-Naprosyn] 375 mg PO BID PRN 06/20/17 [History] [place]-3S/Dha/Epa/Fish Oil [Fish Oil [place]-3 Softgel] 3 cap PO HS 06/20/17 [ History] Polyethylene Glycol 3350 [MiraLAX] 17 gm PO DAILY 06/20/17 [History] Pravastatin Sodium [Pravachol] 40 mg PO HS 06/20/17 [History] Sennosides/Docusate Sodium [Senna-Docusate Sodium Tablet] 1 tab PO BID 06/20/17 [History] Aspirin Enteric Coated [Aspirin EC] 81 mg PO DAILY #30 06/22/17 [Rx] Metoprolol [Lopressor] 12.5 mg PO BID tab 06/22/17 [Rx] Allergies/Adverse Reactions: 3 Allergy/AdvReac Type Severity Reaction Status Date / Time quetiapine AdvReac See Verified 01/14/16 11:27 Comments Procedures/tests Complete & Pending: Procedures Performed prior 72 hours Category Date Time Status ECG 12 lead ECG [ECG] AM 0600 Y 06/20/17 06:00 Ordered EV echocardiogram Routine Y 06/20/17 05:53 Completed Date of admission: 06/20/17 00:07 [facility] Consults: 06/20/17 05:57 Consult to Physician [CONS] Routine Consulting Provider: Abram Ford Reason for Consult: chest pain Call Completed: No Consult to [facility] [CONS] Routine Reason for SW Consult: [place] inpatient Psych unit -- will need to treturn when stable Discharging clinician: Leighann Morales Anticipated date of discharge: 06/22/17 - Patient Status Disposition: Transfer [facility] Condition: Fair Functional capacity at discharge: bed bound Overall status at discharge: patient is not back to baseline - Discharge Instructions Follow Up With: [facility] [Primary Care Provider] - - Diet and Activity Activity: as per physical therapy Interval History: Seen and examined at bedside. Patient is new to me, information obtained from chart review only. Patient appears to be in a catatonic state. Does not open eyes, nonverbal, will not answer questions or follow commands. Sitter at bedside and reports patient was verbal earlier in the shift, patient did eat breakfast but had to be fed. Unable to obtain subjective history or review of systems due to altered mental status Hospital course: Mr. Centeno is a 66 year old male - Time Spent with Patient Total time spent providing and/or coordinating discharge services: - Constitutional Vitals: Temp Pulse Resp BP Pulse Ox 98.1 F 69 14 98/56 91 06/22/17 11:00 06/22/17 11:00 06/22/17 11:00 06/22/17 11:00 06/22/17 11:00 General appearance: Present: mild distress, pleasant, answers questions appropriately. Absent: cooperative - Head Head exam: Present: atraumatic, normocephalic - Eye Eye exam: Present: PERRL, conjuntiva pink, sclera anicteric Pupils: Present: PERRL - Neck Neck exam general surgery: Present: supple, trachea midline. Absent: lymphadenopathy - Respiratory Respiratory exam: Present: CTAB. Absent: accessory muscle use, rales, rhonchi, wheezes - Cardiovascular Cardiovascular exam: Present: RRR, +S1, +S2. Absent: diastolic murmur, gallop, rubs, systolic murmur - GI/Abdominal GI/Abdominal exam: Present: normal bowel sounds, soft, no peritoneal signs. Absent: distended, tenderness - Extremities Exam Extremities exam: Present: warm, radial pulses palpable and symmetrical. Absent : calf tenderness, cyanotic, pedal edema - Neurological Exam Neurological exam: Present: CN II-XII intact, oriented X3, no focal deficits. Absent: pronater drift, facial droop, speech deficit Additional comments: Unable to fully assess as patient is nonverbal. Does not follow commands. Extremities stiff and rigid. - Skin Skin exam: Present: dry, intact
--- NOTE | 2017-06-22 16:17 | Physician Discharge Referral ---
ExtendedCare Referral Info Transfer To: [place] Provider in Charge: Leighann Morales CNP Provider in Charge after Transfer: Other (Inpatient psych) - Diagnosis (1) Chest pain Status: Resolved (2) Schizophrenia Status: Acute (3) Essential hypertension Status: Acute (4) Hyperlipidemia Status: Acute (5) DVT prophylaxis Status: Acute - Transfer Medications Prescriptions: Aspirin Enteric Coated [Aspirin EC] 81 mg PO DAILY #30 Home Medications: ARIPiprazole [Abilify] 10 mg PO DAILY 01/14/16 [History] BuPROPion SR (12 HR) [Wellbutrin SR] 100 mg PO DAILY 01/14/16 [History] Haloperidol [Haldol] 2 mg PO TID 01/14/16 [History] Lisinopril [Zestril] 5 mg PO DAILY 01/14/16 [History] Haloperidol Decanoate [Haldol] 50 mg IM Q28D 02/16/17 [History] Tamsulosin [Flomax] 0.4 mg PO HS capsule 02/22/17 [Rx] Acetaminophen [Tylenol] 650 mg PO Q6HR PRN 06/20/17 [History] Albuterol Sulfate [Albuterol Inhaler] 1 - 2 puff IH Q6HR PRN 06/20/17 [History] LORazepam [Ativan] 1 mg PO BID 06/20/17 [History] Memantine HCl 10 mg PO HS 06/20/17 [History] Naproxen [EC-Naprosyn] 375 mg PO BID PRN 06/20/17 [History] [place]-3S/Dha/Epa/Fish Oil [Fish Oil [place]-3 Softgel] 3 cap PO HS 06/20/17 [ History] Polyethylene Glycol 3350 [MiraLAX] 17 gm PO DAILY 06/20/17 [History] Pravastatin Sodium [Pravachol] 40 mg PO HS 06/20/17 [History] Sennosides/Docusate Sodium [Senna-Docusate Sodium Tablet] 1 tab PO BID 06/20/17 [History] Aspirin Enteric Coated [Aspirin EC] 81 mg PO DAILY #30 06/22/17 [Rx] Metoprolol [Lopressor] 12.5 mg PO BID tab 06/22/17 [Rx] Allergies/Adverse Reactions: 3 Allergy/AdvReac Type Severity Reaction Status Date / Time quetiapine AdvReac See Verified 01/14/16 11:27 Comments - Respiratory Orders None Smoking Cessation: Smoking cessation has been advised. For more information, call the [place] Tobacco Quit Line at 0-901-SMOS-NOW. - Ancillary Orders May use pressure relief devices daily prn - Advance Directives Code Status: Full Code - Mobility Orders Other (bedbound) - Rehabiliation Orders Rehab Potential: Poor Rehab Orders: Evaluation for Physical Therapy, Evaluation for Occupational Therapy, Evaluation for Speech Therapy - Diet Orders Regular CERTIFICATION: I certify that the transfer of the above named patient to an Extended Care Facility is necessary for the continuing treatment of the diagnosis listed. The above information is true and accurate reflection of patient's current condition. Confidential - Redisclosure prohibited without a patient's written consent.
== END 2017-06-22 16:21 | DRG 313 ==
LOC: EMEROO 20:17 → 3BNU 06-20 00:07
PROVIDERS: ADMIT Family Medicine; ATTEND Registered Nurse